=== PATIENT | male | born 1985 | race African-American/Black ===

== ENCOUNTER → 2020-03-22 10:19 | Outpatient (CLI) | payer BC, SELFPAY ==
[2017-02-15 02:12] VITALS: BMI 30.8
--- NOTE | 2020-03-22 10:26 | RAD_ITS ---
STUDY: X-RAY - ABDOMEN/PELVIS REASON FOR EXAM: Male, 35 years old. LOWER ABDOMINAL PAIN x2 WEEKS TECHNIQUE: AP supine and upright views of the abdomen and pelvis. COMPARISON: None. FINDINGS: Normal visualized lung bases. There is an unremarkable bowel gas pattern. There is no demonstrated free abdominal air. The visualized liver, spleen and kidneys are grossly normal in size and morphology. Normal soft tissue structures. Normal visualized osseous structures. RAD/Abd Inc Decub and/or Erect IMPRESSION: Normal x-ray examination of the abdomen and pelvis. Electronically Signed: Dionte Abraham MD at 9:14 EDT Tel , Service support ,
== END ==
PROVIDERS: PCP Family Medicine; Referring Provider Family Medicine; Visit Provider Family Medicine
DX: R10.9 Unspecified abdominal pain (principal)
CPT/HCPCS: 74019

== ENCOUNTER → 2020-03-26 12:44 | Outpatient (CLI) | payer BC, SELFPAY ==
--- NOTE | 2020-03-26 12:48 | CT_ITS ---
STUDY: CT ABDOMEN AND PELVIS WITH CONTRAST REASON FOR EXAM: Male, 35 years old. Abdomen pain, LLQ tenderness, Pain around umbilical region, Pain is intermittent, No prev surg RADIATION DOSAGE (If Supplied By Facility): CTDIvol = ( 13.95 ) mGy, DLP = ( 1067.88 ) mGycm TECHNIQUE: Transaxial images were obtained from the dome of the diaphragm to the symphysis pubis with oral contrast. Oral and amp; IV Readi-CAT and amp; 100mL Isovue-300 was administered. Sagittal and coronal images were reconstructed. Individualized dose optimization techniques were used for this CT. COMPARISON: None. FINDINGS: The visualized lung bases are unremarkable. The visualized portions of the heart are within normal limits. Normal liver. Normal gallbladder and extrahepatic biliary system. Normal spleen. Normal pancreas. Normal bilateral adrenal glands. There is a 2 cm x 2 some mucous cyst in the upper pole of the right kidney. Normal left kidney. Normal visualized stomach. Normal small intestine. There is thickening of the descending colon as well as the rectosigmoid colon and rectum with increased markings in the surrounding peritoneal fat. Colitis should be ruled out. The appendix is visualized and appears normal. Normal abdominal aorta. Normal inferior vena cava. There is borderline retroperitoneal lymphadenopathy with enlarged nodes no greater than 10mm in the short axis diameter. Mild degree of diffuse bladder wall thickening above the bladder is not completely distended. Small bilateral inguinal hernias containing fat more prominent on the right side. Normal osseous structures. CT/Abdomen/Pelvis WITH Contrast IMPRESSION: Findings in keeping with a colitis of the left; worse in the sigmoid and rectosigmoid junction. Electronically Signed: Bernard Bar, at 13:48 EST , Service support ,
== END ==
LOC: CT 12:45
PROVIDERS: PCP Family Medicine; Referring Provider Family Medicine; Visit Provider Family Medicine
DX: R10.9 Unspecified abdominal pain (principal)
CPT/HCPCS: 74177; Q9967

== ENCOUNTER → 2020-04-29 15:57 | Outpatient (CLI) | payer BC, SELFPAY ==
[2017-02-15 02:12] VITALS: BMI 30.8
[2020-04-29 17:53] LABS: Hematocrit 45.1 % (40-54); Hemoglobin 14.7 g/dL (13.0-16.5); Mean Corp Hgb Conc 32.6 g/dL (32-36); Mean Corpuscular Hgb 28.8 pg (27.0-32.0); Mean Corpuscular Volume 88.3 fL (80-94); Mean Platelet Vol. 13.1 fl (6.2-12.0); Platelet Count 200 K/mm3 (150-450); RBC Distribution Width CV 13.4 % (11.6-14.6); RBC Distribution Width SD 44.1 fl (35.1-43.9); Red Blood Count 5.11 M/mm3 (4.6-6.2); White Blood Count 8.6 K/mm3 (4.4-11.0)
[2020-04-29 18:44] LABS: Erythrocyte Sedimentation Rate 2 mm/hr (0-15)
[2020-04-29 19:01] LABS: ALB/GLOB Ratio 1.3 RATIO (0.9-2.4); AST(SGOT) 13 U/L (15-37); Alanine Aminotransfer ALT/SGPT 37 U/L (16-61); Albumin, Serum 4.3 g/dL (3.2-5.0); Alkaline Phosphatase 80 U/L (45-117); Anion Gap 3 (5-15); BUN 15 mg/dL (7-18); BUN/Creat Ratio 17.2 RATIO (10-20); CRP < 2.90 mg/L (0.0-3.0); Calcium,Total 9.1 mg/dL (8.5-10.1); Chloride 107 mmol/L (98-107); Creatinine, Serum 0.87 mg/dL (0.70-1.30); EST Glomerular Filtration Rate 107 mL/min (>60); Est Glom Filt Rate - Afr Amer 129 mL/min (>60); Globulin 3.4 g/dL (2.2-4.2); Glucose 77 mg/dL (74-106); Potassium 3.6 mmol/L (3.5-5.1); Protein, Total 7.7 g/dL (6.4-8.2); Sodium Level 139 mmol/L (136-145)
[2020-05-01 16:08] LABS: Endomysial Antibody IgA Negative (Negative)
[2020-05-01 21:05] LABS: Immunoglobulin A 193 mg/dL (90-386); t-Transglutaminase IgA <2 U/mL (0-3)
== END ==
PROVIDERS: PCP Family Medicine; Referring Provider Internal Medicine Gastroenterology; Visit Provider Internal Medicine Gastroenterology
DX: R19.7 Diarrhea, unspecified (principal); R63.4 Abnormal weight loss
CPT/HCPCS: 36415; 80053; 82784; 83516; 85027; 85652; 86140; 86255

== ENCOUNTER 2023-05-29 05:27 | Emergency (ER) | payer MEDICAID, SELFPAY ==
[2023-05-29 05:28] VITALS: BP 133/77; PULSE 91; RESP 15; TEMP 35.8; O2SAT 89; BMI 36.5
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
[2023-05-29 06:13] LABS: Absolute Lymphocyte Count 1.02 X10^3/uL (0.83-4.51); Absolute Neutrophil Count 7.1 X10^3/uL (2.0-7.7); Basophil# 0.07 X10^3/uL; Basophil% 0.8 % (0-1); Eosinophil# 0.02 X10^3/uL; Eosinophils% 0.2 % (0-5); Hematocrit 45.7 % (40-54); Hemoglobin 15.5 g/dL (13.0-16.5); Lymphocyte # 1.02 X10^3/ul (0.83-4.51); Lymphocyte % 11.5 % (19-41); Mean Corp Hgb Conc 33.9 g/dL (32-36); Mean Corpuscular Hgb 30.4 pg (27.0-32.0); Mean Corpuscular Volume 89.6 fL (80-94); Mean Platelet Vol. 12.2 fl (6.2-12.0); Monocyte# 0.54 X10^3/uL; Monocyte% 6.1 % (0-10); NRBC Flagged by Analyzer 0 % (0-5); Neutrophil # 7.12 X10^3/uL (2.7-7.7); Neutrophil % 80.3 % (47-70); Platelet Count 202 K/mm3 (150-450); RBC Distribution Width CV 13.1 % (11.6-14.6); White Blood Count 8.9 K/mm3 (4.4-11.0)
--- NOTE | 2023-05-29 06:21 | RAD_ITS ---
INDICATION: dyspnea EXAMINATION/TECHNIQUE: X-RAY - XR Chest 1 View COMPARISON: None. FINDINGS: LINES/DEVICES: None. LUNGS: No consolidation or evidence of an effusion. No evidence of edema or a pneumothorax. MEDIASTINUM AND CARDIOVASCULAR STRUCTURES: Cardiac silhouette is normal in size and contour. Mediastinum is unremarkable. BONES AND SOFT TISSUES: No acute abnormality. RAD/Chest 1 View (Portable) IMPRESSION: No evidence of cardiopulmonary disease. Electronically Signed: Lokesh Mcarthur DO at 7:04 EST ,
[2023-05-29 06:31] LABS: Anion Gap 6 (5-15); BUN 10 mg/dL (7-18); BUN/Creat Ratio 10.5 RATIO (10-20); Calcium,Total 8.4 mg/dL (8.5-10.1); Chloride 111 mmol/L (98-107); Creatinine, Serum 0.96 mg/dL (0.70-1.30); EST Glomerular Filtration Rate 95 mL/min (>60); Est Glom Filt Rate - Afr Amer 115 mL/min (>60); Estimated Creatinine Clearance 106.38 ml/min; Glucose 130 mg/dL (74-106); Sodium Level 141 mmol/L (136-145)
[2023-05-29 06:43] LABS: Amphetamine Urine VISTA NEGATIVE (<1000 ng/mL); Barbiturate Urine VISTA NEGATIVE (< 200 ng/mL); Benzodiazepine Urine VISTA NEGATIVE (< 200 ng/mL); Cocaine Urine VISTA POSITIVE (< 300 ng/mL); Ecstacy Urine VISTA NEGATIVE (< 500 ng/mL); Methadone Urine VISTA NEGATIVE (< 300 ng/mL); PCP Urine VISTA NEGATIVE (< 25 ng/mL); THC Urine VISTA POSITIVE (< 50 ng/mL); Vista UDS pH Range 5
--- NOTE | 2023-05-29 07:14 | EX.ED.DYSGE1 ---
HPI History of Present Illness Chief Complaint: Overdose Informant: patient and EMS Narrative Narrative: Patient is a 38-year-old male with no reported significant past medical history. He reports he was at a democr[employer] drinking this evening when the next he knows he is waking up by EMS. EMS states that they were called secondary to multiple overdoses and when they arrived the patient was unresponsive but breathing. EMS states they gave the patient approximately 3 Narcan's and he awoke. The patient states he did not deliberately take any type of opioid and reports he has no complaints at this time PFSH PFS Medical History no medical history Home Medications tramadol 50 mg tablet 50 mg PO Q4H PRN PRN Pain #20 tabs 03/18/15 [Rx Last Taken Unknown] ibuprofen 600 mg tablet 600 mg PO 4X/DAY #20 tabs 02/15/17 [Rx Last Taken Unknown] penicillin V potassium 500 mg tablet 500 mg PO 4X/DAY #40 tabs 02/15/17 [Rx Last Taken Unknown] Allergy/AdvReac Type Severity Reaction Status Date / Time cefaclor [From [facility]] Allergy Hives Verified 05/29/23 05:36 Surgical History no surgical history Social History Smoking Status: Current every day smoker tobacco type: cigarettes ROS ROS ED Constitutional Constitutional ED: Denies chills or fever(s) Eyes Eyes: Denies change in vision ENT ENT ED: Denies sore throat Cardiovascular Cardiovascular: Denies chest pain Respiratory/Chest Respiratory/Chest: Denies cough or dyspnea Gastrointestinal Gastrointestinal: Denies abdominal pain, diarrhea, nausea or vomiting Genitourinary Genitourinary ED: Denies dysuria Musculoskeletal Musculoskeletal: Denies myalgias Integumentary Denies rash Neurologic Neurologic: Denies headache(s) Psychiatric Psychiatric: Denies suicidal ideation or suicidal thoughts Hematologic/Lymphatic Hematologic/Lymphatic: Denies easy bleeding or easy bruising EXAM Physical Exam Const Vital Signs: 05/29/23 05:28 Temperature 96.4 F L Temperature Source Temporal Pulse Rate 91 Respiratory Rate 15 Blood Pressure 133/77 H Blood Pressure Mean 95 Pulse Ox 89 Oxygen Delivery Method Room Air Positive well nourished and well developed General Appearance ED: well developed HEENT HEENT Narrative: Normocephalic atraumatic No tongue or lip swelling; no oral lesions no airway edema or compromise No signs of infection in the posterior pharynx Eyes PERRL and EOMs intact bilaterally Neck supple Neck Narrative: No nuchal rigidity or meningeal signs noted Resp normal respiratory effort Resp Narrative: Breath sounds are diminished throughout with faint rhonchi in the bilateral lower lobes Cardio regular rate and regular rhythm GI non-tender, non-distended and no masses Auscultation: hypoactive bowel sounds Palpation: soft Extremity normal to inspection Neuro oriented x3, CN's II-XII intact bilaterally and no sensory deficits noted Sensorium / Orientation: alert Motor Exam: strength 5/5 throughout Psych mental status grossly normal Skin no rashes or lesions noted MDM MDM MDM Narrative Medical decision making narrative: Patient presented to the ER with a pulse ox in the mid 80s but otherwise was awake and alert with stable vitals. As he was showing signs of hypoxia I did elect to check basic laboratory studies and a chest x-ray while he was placed on 2 L nasal cannula oxygen. Patient was awake and alert however and therefore there is no need for emergent airway stabilization or intubation. Blood work revealed no clinically significant findings and his toxin was positive for cocaine and marijuana as well as alcohol. The patient does admit to doing these things but denies any type of opioid ingestion indicating he most likely had fentanyl laced cocaine. The patient was watched in the ER for over 1 hour which is well beyond the 30-minute half-life of Narcan. He remained awake and alert and therefore there is low concern for progression to respiratory distress or mental status depression. As time went by and the medication metabolized out of his system he was breathing better and had improvement in his pulse ox. On room air he is now 90 to 94%. Does not have tachypnea or retractions accessory muscle use or depressed mental status. X-ray does not reveal any type of aspiration or pulmonary edema. Therefore do not feel there is need for admission to the hospital and he is otherwise safe for discharge Lab Data Labs: Laboratory Results - last 24 hr 05/29/23 06:00 WBC 8.9 RBC 5.10 Hgb 15.5 Hct 45.7 MCV 89.6 MCH 30.4 MCHC 33.9 RDW Std Deviation 43.0 RDW Coeff of Mio 13.1 Plt Count 202 MPV 12.2 H Immature Gran % (Auto) 1.100 H Neut % (Auto) 80.3 H Lymph % (Auto) 11.5 L [place] % (Auto) 6.1 Eos % (Auto) 0.2 Baso % (Auto) 0.8 Absolute Neuts (auto) 7.1 Absolute Lymphs (auto) 1.02 Nucleated RBC % 0 Sodium 141 Potassium 4.0 Chloride 111 H Carbon Dioxide 24.0 Anion Gap 6 BUN 10 Creatinine 0.96 Estim Creat Clear Calc 106.38 Est GFR (MDRD) Af Amer 115 Est GFR (MDRD) Non-Af 95 BUN/Creatinine Ratio 10.5 Glucose 130 H Calcium 8.4 L Urine Opiates Screen NEGATIVE Urine Methadone Screen NEGATIVE Ur Barbiturates Screen NEGATIVE Ur Phencyclidine Scrn NEGATIVE Ur Amphetamines Screen NEGATIVE MDMA (Ecstasy) Screen NEGATIVE U Benzodiazepines Scrn NEGATIVE Urine Cocaine Screen POSITIVE H U Cannabinoids Screen POSITIVE H Ur Drug Screen Comment Ethyl Alcohol 137.0 Radiography Diagnostic Testing: Clinical Impression(s) from Imaging Studies Chest X-Ray 05/29/23 06:21 IMPRESSION: No evidence of cardiopulmonary disease. Electronically Signed: Lokesh Mcarthur DO at 7:04 EST Reading Location ID and State: [facility] / [place] Tel , Service support , Chest x-ray as interpreted by the emergency medicine physician reveals no acute infiltrate pneumothorax or pleural effusion Discharge Plan Triage Chief Complaint: Overdose ED Provider: Luis E Sharma Dx/Rx/DC Orders Clinical Impression: Opioid overdose Instructions: Naloxone Nasal for Overdose Steps, ED Overdose, Opiate Prescriptions: No Action tramadol 50 MG tablet 50 mg PO Q4H PRN PRN (Reason: Pain) Qty: 20 0RF penicillin V potassium 500 MG tablet 500 mg PO 4X/DAY Qty: 40 0RF ibuprofen 600 MG tablet 600 mg PO 4X/DAY Qty: 20 0RF Primary Care Provider: Chika Kenney Referrals: Chika Kenney MD [Primary Care Provider] - Disposition Disposition: Home, Self Care Discharge Date/Time: 05/29/23 07:20
== END 2023-05-29 07:20 | disposition home or self-care (01) ==
PROVIDERS: Emergency Provider Emergency Medicine; PCP Family Medicine; Visit Provider Emergency Medicine
DX: T40.2X1A Poisoning by other opioids, accidental (unintentional), initial encounter (principal); F17.210 Nicotine dependence, cigarettes, uncomplicated; R09.02 Hypoxemia
CPT/HCPCS: 71045; 80048; 80307; 80320; 85025; 99283; A4216; G0480

== ENCOUNTER 2024-10-31 12:23 | Inpatient (IN) | payer SELFPAY ==
[2024-10-31] VITALS (14 sets, daily range): BP systolic 124–178; BP diastolic 73–107; PULSE 40–60; RESP 10–17; TEMP 36.1–36.4; O2SAT 94–100; BMI 35.9; BMI 36.1
--- NOTE | 2024-10-31 12:31 | EKG12_ITS ---
Test Reason : Blood Pressure : */* mmHG Vent. Rate : 45 BPM Atrial Rate : 45 BPM P-R Int : 220 ms QRS Dur : 92 ms QT Int : 434 ms P-R-T Axes : 48 55 26 degrees QTcB Int : 375 ms Sinus bradycardia with sinus arrhythmia with 1st degree A-V block Otherwise normal ECG Confirmed by Eliot Montoya ([id number]), newspaper copy editor VANCE MADRIGAL ([id number]) on 11/02/2024 6:14:02 AM Referred By: Confirmed By: Eliot Montoya
--- NOTE | 2024-10-31 12:43 | EX.ED.VIS.PS ---
HPI HPI - Psych History of Present Illness Chief Complaint: Overdose Informant: patient and EMS Narrative Narrative: Brought in by EMS for intentional overdose ingestion 10:30 AM 2 hours ago. Patient states stress from his ex-spouse and ex significant other. He has prescription for clonidine 0.1 mg which he takes every morning before work for anxiety and depression. He states due to stress he just wanted to sleep and have taken at least 60 tabs of his 0.1 mg pills. He took it into large swallows per patient. Denies any other ingestions. He follows psychiatry. He states never been hospitalized for psychiatric issues in the past. Denies any overdose in the past. Denies any current symptoms of nausea or vomiting or drowsiness. Picture from police deputy 0.1 mg confirm filled on 80 tabs however picture did not show the date filled. Prior similar symptoms: No PFSH PFSH Medical History no medical history Home Medications ?Medication ?Instructions ?Recorded ?Last Taken ?Type clonidine HCl 0.1 mg tablet 0.05 - 0.1 mg PO BID PRN PRN 10/31/24 10/31/24 History anxiety fluoxetine 20 mg capsule 20 mg PO DAILY 10/31/24 10/31/24 History Allergy/AdvReac Type Severity Reaction Status Date / Time cefaclor (From [facility]) Allergy Hives Verified 10/31/24 12:24 Family History no significant family his Surgical History no surgical history Social History Smoking Status: Current every day smoker tobacco type: cigarettes ROS ROS ED Constitutional Constitutional ED: Denies fever(s) Cardiovascular Cardiovascular: Denies chest pain Respiratory/Chest Respiratory/Chest: Denies cough Gastrointestinal Gastrointestinal: Denies diarrhea or vomiting Musculoskeletal Musculoskeletal: Denies none Integumentary Denies rash or wounds Neurologic Neurologic: Denies weakness Psychiatric Psychiatric: Reports anxiety, depression and other Details: Stressed EXAM Physical Exam Const Vital Signs: 10/31/24 12:24 10/31/24 12:24 10/31/24 13:24 Temperature 96.9 F L Temperature Source Oral Pulse Rate 43 L 45 L Respiratory Rate 14 17 Blood Pressure 152/104 H 168/97 H Blood Pressure Mean 120 120 Pulse Ox 99 98 Oxygen Delivery Method Room Air Room Air Room Air 10/31/24 14:00 10/31/24 14:28 Temperature 96.9 F L Temperature Source Pulse Rate 43 L 44 L Respiratory Rate 10 L 11 L Blood Pressure 158/78 H 158/78 H Blood Pressure Mean 104 104 Pulse Ox 100 100 Oxygen Delivery Method Room Air Positive well nourished and well developed General Appearance ED: well developed and NAD HEENT Reports moist mucous membranes normocephalic and atraumatic Eyes General Eye ED: Yes normal appearance of both eyes Neck full ROM Chest Wall Chest: Negative for tenderness Resp normal respiratory effort and normal air movement Effort and Inspection: symmetric chest movement; Negative for respiratory distress Cardio no murmurs Rate: bradycardia Peripheral Pulses: pulses 2+ throughout GI normal to inspection, nondistended, normoactive bowel sounds and non-tender Palpation: Negative for guarding or rebound tenderness present Extremity normal to inspection General Extremety ED: Negative for edema or tenderness General Extremity: Negative for edema Neuro oriented x3 and no sensory deficits noted Sensorium / Orientation: awake and alert Psych Psych Narrative: Cooperative, nontoxic. Skin no rashes or lesions noted and no wounds MDM MDM MDM Narrative Medical decision making narrative: Interventions / MDM: Differential diagnosis: Intentional overdose, history of anxiety and depression, bradycardia Diagnosis considered but do not suspect: N/A My EKG interpretation: Sinus rate of 45, no ST changes. QTc 375. Imaging independently reviewed and interpreted by myself: N/A External documents reviewed: N/A Test considered but not ordered:N/A ED course: Intentional overdose 2 hours prior to arrival current vitals pulse of 43 blood pressure 152/104. Psychiatric labs ordered including aspirin and Tylenol levels. 1240: I spoke with poison control, discussed his ingestion 2 hours ago. They report monitoring for his vitals if he clinically does not develop drowsiness or symptoms can clear after 6 hours however if he does start having clinical symptoms he would need 24 hours of monitoring. 1300: Patient is reporting some fatigue. Stating if he lays down it fall asleep in 20 minutes. Hemoglobin 14.8 white count 13.2. 1340: after reevaluate the patient, he is now stating he was not drowsy, sitting on the room states only for last 10 seconds. I discussed with him he likely hospitalization as somnolence is part of side effects even though he did not sleep last night. Discussed he will be on a psychiatric hold for intentional ingestion. Shortly after he tried to walk out of the department. Security and PD contacted. Will order for Haldol Ativan and Benadryl for chemical sedation. [place] slip has been filled out. 1359: [place] police was in the department. Medications not been given. Took 4 officers to get him back to the room. He was tearful being apologetic stating he will cooperate. He states first time he is being pink slipped. Discussed with him medically he needs to make sure he is safe with his vitals and his ingestion. Discussed he will need psychiatric evaluation and clearance prior to going home to his family and children. He understands this. He states he is willing to cooperate therefore medications will be held at this time. Toxicology THC opiates, alcohol negative. Aspirin and Tylenol negative. Will discuss with hospitalist service for admission. I discussed with Dr. Calderon for admission to ICU. Re-evaluation: stable Disposition discussed with patient/family/significant other: Patient and significant other Case discussed with consulting clinician: Hospitalist This note was generated with [employer] dictation software. It may contain incorrect words, spelling, and punctuation that were not noted in checking the note before signing. Lab Data Attestation: I reviewed the patient's lab results. Labs: Laboratory Results - last 24 hr 10/31/24 10/31/24 12:50 13:20 WBC 13.2 H RBC 4.63 Hgb 14.8 Hct 41.0 MCV 88.6 MCH 32.0 MCHC 36.1 H RDW Std Deviation 42.3 RDW Coeff of Mio 13.1 Plt Count 212 MPV 12.2 H Immature Gran % (Auto) 1.400 H Neut % (Auto) 71.5 H Lymph % (Auto) 17.3 L [place] % (Auto) 6.7 Eos % (Auto) 2.3 Baso % (Auto) 0.8 Absolute Neuts (auto) 9.5 H Absolute Lymphs (auto) 2.29 Nucleated RBC % 0 Sodium 136 Potassium 4.3 Chloride 104 Carbon Dioxide 22.8 Anion Gap 10 BUN 14 Creatinine 0.78 Estim Creat Clear Calc 158.87 Est GFR (MDRD) Non-Af 118 BUN/Creatinine Ratio 17.5 Glucose 206 H Calcium 9.1 Total Bilirubin 0.37 AST 21 ALT 33 Alkaline Phosphatase 101 Total Protein 6.8 Albumin 4.2 Globulin 2.6 Albumin/Globulin Ratio 1.6 Salicylates < 0.5 L Urine Opiates Screen PRESUMPTIVE POSITIVE U Buprenorphine Qual NEGATIVE Ur Oxycodone Screen NEGATIVE Urine Methadone Screen NEGATIVE Urine Fentanyl Screen NEGATIVE Acetaminophen < 5.0 L Ur Barbiturates Screen NEGATIVE Ur Phencyclidine Scrn NEGATIVE Ur Amphetamines Screen NEGATIVE U Benzodiazepines Scrn NEGATIVE Urine Cocaine Screen NEGATIVE U Cannabinoids Screen PRESUMPTIVE POSITIVE Ethyl Alcohol < 10.1 Critical Care Time Critical Care Time: Yes Critical care time (excluding procedures): 30-74 minutes, Discussing w/Patient &/or Family/Accordion Maker, Discussing w/Consultants, Arranging Admission or Transfer, Performing Direct Patient Care at Bedside and - (35 minutes) Discharge Plan Triage Chief Complaint: Overdose ED Provider: Ezequiel Feliciano Dx/Rx/DC Orders Primary Care Provider: Care Physician,No Primary
[2024-10-31 13:04] LABS: Absolute Lymphocyte Count 2.29 X10^3/uL (0.83-4.51); Absolute Neutrophil Count 9.5 X10^3/uL (2.0-7.7); Basophil# 0.11 X10^3/uL; Basophil% 0.8 % (0-1); Eosinophils% 2.3 % (0-5); Hemoglobin 14.8 g/dL (13.0-16.5); Lymphocyte # 2.29 X10^3/ul (0.83-4.51); Lymphocyte % 17.3 % (19-41); Mean Corp Hgb Conc 36.1 g/dL (32-36); Mean Corpuscular Volume 88.6 fL (80-94); Mean Platelet Vol. 12.2 fl (6.2-12.0); Monocyte# 0.88 X10^3/uL; Monocyte% 6.7 % (0-10); NRBC Flagged by Analyzer 0 % (0-5); Neutrophil # 9.46 X10^3/uL (2.7-7.7); Neutrophil % 71.5 % (47-70); Platelet Count 212 K/mm3 (150-450); RBC Distribution Width CV 13.1 % (11.6-14.6); RBC Distribution Width SD 42.3 fl (35.1-43.9); Red Blood Count 4.63 M/mm3 (4.6-6.2); White Blood Count 13.2 K/mm3 (4.4-11.0)
[2024-10-31 13:37] LABS: ALB/GLOB Ratio 1.6 RATIO (0.9-2.4); AST(SGOT) 21 U/L (<=37); Acetaminophen (Tylenol) Level < 5.0 ug/mL (8.0-19.0); Alanine Aminotransfer ALT/SGPT 33 U/L (<=46); Albumin, Serum 4.2 g/dL (3.5-5.0); Alcohol, Blood (Medical)-Serum < 10.1 mg/dL (<=10.0); Alkaline Phosphatase 101 U/L (40-129); Anion Gap 10 (5-15); BUN 14 mg/dL (4-19); BUN/Creat Ratio 17.5 RATIO (10-20); Calcium,Total 9.1 mg/dL (7.6-11.0); Carbon Dioxide 22.8 mmol/L (21.0-32.0); Chloride 104 mmol/L (98-108); Creatinine, Serum 0.78 mg/dL (0.70-1.20); EST Glomerular Filtration Rate 118 (>60); Estimated Creatinine Clearance 158.87 ml/min (50-250); Globulin 2.6 g/dL (2.2-4.2); Glucose 206 mg/dL (70-99); Potassium 4.3 mmol/L (3.3-5.1); Protein, Total 6.8 g/dL (5.9-8.4); Salicylate < 0.5 mg/dL (2.8-20.0); Sodium Level 136 mmol/L (133-145); Total Bilirubin 0.37 mg/dL (0.00-1.30)
[2024-10-31 13:47] LABS: Amphetamine Urine NEGATIVE (<1000 ng/mL); Barbiturate Urine NEGATIVE (< 200 ng/mL); Benzodiazepine Urine NEGATIVE (< 200 ng/mL); Buprenorphine Urine NEGATIVE (< 200 ng/mL); Cocaine Urine NEGATIVE (< 300 ng/mL); Fentanyl, Urine NEGATIVE; Methadone Urine NEGATIVE (< 300 ng/mL); Opiates Urine PRESUMPTIVE POSITIVE (< 300 ng/mL); Oxycodone, Urine NEGATIVE (< 100 ng/mL); PCP Urine NEGATIVE (< 25 ng/mL); THC Urine PRESUMPTIVE POSITIVE (< 50 ng/mL)
--- NOTE | 2024-10-31 14:06 | ED.RN ---
This RN was called to the bedside by sitter. Pt leaving room, ripping off monitors and tearing out IV. Security and PD notified immediately. PD Jose at entrance when Pt tried to leave. PD tried to talk to Pt but Pt started pushing past. Pt refused to listen. Pt put in bed and safely returned to room. Sitter and security at bedside.
--- NOTE | 2024-10-31 14:33 | PCM.HP.STD ---
HPI - General General Date of Admission: 10/31/24 Date of Service: 10/31/24 Chief Complaint: Intentional clonidine overdose HPI Narrative TORREY CRAIG, is a 39 M who presented to [facility] ED on 10/31/24 after an intentional clonidine overdose. Patient takes clonidine 0.1 mg before work morning for anxiety and depression. Noted that he had been under significant stress recently from his ex significant other. Because of the stress he reported wanting to sleep and took at least 60 tabs of his 0.1 mg clonidine pills. No prior history of intentional overdose. Denies any other ingestions. He does follow with psychiatry in the outpatient setting but has never been hospitalized for psychiatric issues. Per ED physician, there was a picture from the police that confirmed a fill of 0.1 mg of clonidine for 80 tabs, though the fill date was not shown. On arrival to the ED he was mildly somnolent but protecting his airway without issue. Heart rate was in the low 40s and EKG showed sinus bradycardia with first-degree AV block. However he was hypertensive to the 150s and 160s systolic. ED physician discussed with poison control who recommended only monitoring at this point. Patient was calm until he was told he would be pink slipped for psychiatric hold; at that time he tried to walk out of the ED and took 4 officers to get back into his room. Haldol, Ativan and Benadryl were ordered but did not need to be given as patient was able to be redirected back into bed and agreed to stay without issue. Given his ongoing bradycardia and need for 24 hours of monitoring, hospitalist was contacted for admission. I saw the patient at bedside in the ED. Patient was sleeping when I arrived to the room. Upon awakening, he was somewhat somnolent but was answering questions appropriately for me. He denied any acute pain or discomfort. No other acute concerns at this time. [facility] Medical History no medical history Home Medications ?Medication ?Instructions ?Recorded ?Last Taken ?Type clonidine HCl 0.1 mg tablet 0.05 - 0.1 mg PO BID PRN PRN 10/31/24 10/31/24 History anxiety fluoxetine 20 mg capsule 20 mg PO DAILY 10/31/24 10/31/24 History Allergy/AdvReac Type Severity Reaction Status Date / Time cefaclor (From [facility]) Allergy Hives Verified 10/31/24 12:24 Family History no significant family his Surgical History no surgical history Social History Smoking Status: Current every day smoker tobacco type: cigarettes ROS Constitutional Constitutional: Reports fatigue; Denies chills, fever(s) or weakness Eyes Eyes: Denies change in vision Cardiovascular Cardiovascular: Denies chest pain Respiratory/Chest Respiratory/Chest: Denies shortness of breath at rest Gastrointestinal Gastrointestinal: Denies abdominal pain Neurologic Neurologic: Denies dizziness, focal weakness or headache(s) Psychiatric Psychiatric: Reports anxiety and depression; Denies homicidal ideation or suicidal ideation Vital Signs Vital Signs Vital Signs: 10/31/24 12:24 10/31/24 12:24 10/31/24 13:24 Temperature 96.9 F L Temperature Source Oral Pulse Rate 43 L 45 L Respiratory Rate 14 17 Blood Pressure 152/104 H 168/97 H Blood Pressure Mean 120 120 Pulse Ox 99 98 Oxygen Delivery Method Room Air Room Air Room Air 10/31/24 14:00 10/31/24 14:28 Temperature 96.9 F L Temperature Source Pulse Rate 43 L 44 L Respiratory Rate 10 L 11 L Blood Pressure 158/78 H 158/78 H Blood Pressure Mean 104 104 Pulse Ox 100 100 Oxygen Delivery Method Room Air Weight Weight: 110.5 kg Body Mass Index (BMI) 35.9 Physical Exam Const alert, oriented x3 and no apparent distress Constitutional Narrative: Younger male, class II obesity, mildly somnolent appearing, otherwise laying back comfortably in bed, conversing normally, in no acute distress. General Appearance: cooperative and comfortable HEENT normocephalic, head/scalp atraumatic, hearing grossly normal bilaterally, nasal mucous membranes and turbinates normal and moist oral mucous membranes Eyes PERRL, EOMs intact bilaterally and conjunctivae normal Neck full ROM Chest inspection of chest normal Resp normal respiratory effort, normal air movement, no use of accessory muscles and clear to auscultation bilaterally Cardio no murmurs and peripheral pulses 2+ throughout Cardio Narrative: Bradycardic, regular rhythm. GI normal to inspection, nondistended, normoactive bowel sounds, soft to palpation, non-tender and non-distended Back/Spine normal ROM Extremity normal to inspection, full ROM and no pedal edema Skin no rashes or lesions noted Psych Psych Narrative: Mildly somnolent with flat affect. Mood & Affect: depressed Results Lab / Micro Data 10/31/24 12:50 10/31/24 12:50 Labs: Laboratory Results - last 24 hr 10/31/24 12:50: WBC 13.2 H, RBC 4.63, Hgb 14.8, Hct 41.0, MCV 88.6, MCH 32.0, MCHC 36.1 H, RDW Std Deviation 42.3, RDW Coeff of Mio 13.1, Plt Count 212, MPV 12.2 H, Immature Gran % (Auto) 1.400 H, Neut % (Auto) 71.5 H, Lymph % (Auto) 17.3 L, [place] % (Auto) 6.7, Eos % (Auto) 2.3, Baso % (Auto) 0.8, Absolute Neuts (auto) 9.5 H, Absolute Lymphs (auto) 2.29, Nucleated RBC % 0, Sodium 136, Potassium 4.3, Chloride 104, Carbon Dioxide 22.8, Anion Gap 10, BUN 14, Creatinine 0.78, Estim Creat Clear Calc 158.87, Est GFR (MDRD) Non-Af 118, BUN/Creatinine Ratio 17.5, Glucose 206 H, Calcium 9.1, Total Bilirubin 0.37, AST 21, ALT 33, Alkaline Phosphatase 101, Total Protein 6.8, Albumin 4.2, Globulin 2.6, Albumin/Globulin Ratio 1.6, Salicylates < 0.5 L, Acetaminophen < 5.0 L, Ethyl Alcohol < 10.1 10/31/24 13:20: Urine Opiates Screen PRESUMPTIVE POSITIVE, U Buprenorphine Qual NEGATIVE, Ur Oxycodone Screen NEGATIVE, Urine Methadone Screen NEGATIVE, Urine Fentanyl Screen NEGATIVE, Ur Barbiturates Screen NEGATIVE, Ur Phencyclidine Scrn NEGATIVE, Ur Amphetamines Screen NEGATIVE, U Benzodiazepines Scrn NEGATIVE, Urine Cocaine Screen NEGATIVE, U Cannabinoids Screen PRESUMPTIVE POSITIVE Assessment & Plan Assessment/Plan (1) Intentional overdose of clonidine: PLAN: Plan Patient is a 39-year-old male who presented to [facility] ED on 10/31/24 for intentional clonidine overdose. 1. Intentional clonidine overdose ? Admit under inpatient status to ICU. Reportedly took about 60 tablets of clonidine 0.1 mg. Typically takes clonidine 0.1 mg every morning for anxiety/depression. He denied suicidal ideation; rather stated he took this because he has been under a lot of stress and wanted to sleep. Bradycardic in the ED with rate in the 40s, with EKG showing sinus bradycardia with first-degree AV block. BP normal. Mild somnolence but no concern for airway issues. Monitor closely overnight. [place] slip in place and patient will require inpatient psychiatric hospitalization once medically cleared. 2. Elevated BP ? Hypertensive to the 150s to 160s systolic in the ED. No reported history of hypertension. Suspect this could be some degree of rebound hypertension in setting of clonidine overdose. Will order IV hydralazine as needed for SBP greater than 170. 3. Anxiety/depression ? Psychiatric hold in place as noted above. Continue home fluoxetine. Holding clonidine. 4. Class II obesity ? BMI 36 on admit. Complicates hospital course, care and prognosis. DVT prophylaxis: Lovenox CODE STATUS: Full code, unverified Expected disposition: Inpatient psych, TBD Total clinical time spent by myself addressing the patient's medical issues, reviewing all the data, and collaborating with patient's care team: 55 minutes. Charges/Coding Visit Charges Inpatient E&M: 96831 Init Hosp L2
--- NOTE | 2024-10-31 16:48 | CM.ED ---
Social Work SW met with patient and patients to notify patient of what to expect over the next day or days. SW explained that patient was brought to ED on a pink slip and that once he was medically cleared he would be assessed to determine if further mental health treatment was needed. Patient stated that he had taken that many pills on accident and that he was not trying to kill himself. SW told patient that he would be able to speak with whatever mental health professional was completing his assessment. Patient wanted to know how long he would be at the hospital, SW explained that a pink slip was valid for 3 days but it was uncertain how long process would take as it was uncertain when he would be medically cleared. Patient and patients had no questions during conversation. Clau Araujo, MEDICAL BILLING ASSISTANT, COMMERCIAL LOAN ADMINISTRATOR
--- NOTE | 2024-10-31 17:51 | ED.RN ---
Report called to ICU
--- OUTSIDE RECORDS SUMMARY | 2024-10-31 23:55 | XMS RPT_ITS | CCD ---
Author Organization [facility] Care Team Providers Care [facility] Dentist Name Role Phone Unavailable Primary Care Provider UnavailLuis E Ramos Attending Unavailable Chika Kenney Primary Care Unavailable Dr. Ezequiel Feliciano DO Emergency Provider [phone] Care Physician, No Primary Primary Care Provider Unavailable Dr. Lane Calderon DO Attending Provider Dr. Lane Calderon DO Admit Provider Allergies Allergy Classification Reported Allergen(s) Allergy Type Date of Onset Reaction(s) Facility (5 sources) Cefaclor; Translations: [CEFACLOR] Drug Allergy 07-29-2006 [facility] (1 source) Cefaclor Drug Allergy 05-29-2023 [facility] Repository Medications Current Medications Medication Drug Class(es) Dates Sig (Normalized) Sig (Original) amoxicillin 875 mg / clavulanate 125 mg oral tablet (1 source) Penicillin-class Antibacterial Start: 05-27-2022 End: 06-01-2022 take 1 tablet by mouth twice daily amoxicillin-clavul anic acid (AUGMENTIN) 875-125 mg per tablet Take 1 tablet by mouth twice daily for 5 days. 10 tablet 0 05/27/2022 06/01/2022 Active Comment on above: Take 1 tablet by janice twice daily for 5 days. ciprofloxacin 3 mg/ml ophthalmic solution (1 source) Quinolone Antimicrobial Start: 05-27-2022 End: 06-03-2022 take 1-2 drop(s) into the eye(s) every two hours, then take 1-2 drop(s) into the eye(s) every four hours ciprofloxacin HCl (CILOXAN) 0.3 % ophthalmic solution Use 1-2 drops inside left lower eyelid(s) every 2 hours while awake for 2 days, then 1-2 drops every 4 hours for next 5 days. 10 mL 0 05/27/2022 06/03/2022 Active Comment on above: Use 1-2 drops inside left lower eyelid(s) every 2 hours while awake for 2 days, then 1-2 drops every 4 hours for next 5 days. cloNIDine hydrochloride 0.1 mg oral tablet (1 source) Central alpha-2 Adrenergic Agonist Start: 10-31-2024 take 0.05-0.1 mg by mouth twice daily as needed for anxiety Clonidine Hcl 0.1 mg tablet Active 0.05 - 0.1 mg PO TWICE DAILY NEEDED as needed for anxiety October 31, 2024 12:00am erythromycin 0.005 mg/mg ophthalmic ointment (1 source) Macrolide, Macrolide Antimicrobial Start: 06-12-2022 End: 06-19-2022 erythromycin (ROMYCIN) 5 mg/gram (0.5 %) ophthalmic ointment Indications: Hordeolum internum right upper eyelid Use 1 application in the right eye every 6 hours for 7 days. 3.5 g 0 06/12/2022 06/19/2022 Active Comment on above: Use 1 application in the right eye every 6 hours for 7 days. FLUoxetine 20 mg oral capsule (3 sources) Serotonin Reuptake Inhibitor Start: 10-31-2024 take 1 capsule by mouth once daily Fluoxetine 20 mg capsule Active 20 mg PO DAILY October 31, 2024 12:00am Start: 03-26-2022 take 1 capsule by mo [facility] once daily FLUoxetine (PROZAC) 20 mg capsule Take 20 mg by mouth once daily. 0 03/26/2022 Active Comment on above: Take 20 mg by mouth once daily. Completed/Discontinued Medications Medication Drug Class(es) Dates Sig (Normalized) Sig (Original) ibuprofen 600 mg oral tablet (2 sources) Nonsteroidal Anti-inflammatory Drug Start: 02-15-2017 End: 10-31-2024 take 1 tablet by mouth four times daily Ibuprofen 600 MG tablet Discontinued 600 mg PO 4 TIMES DAILY February 15, 2017 12:00am October 31, 2024 12:43pm penicillin v potassium 500 mg oral tablet (2 sources) Start: 02-15-2017 End: 10-31-2024 take 1 tablet by mouth four times daily Penicillin V Potassium 500 MG tablet Discontinued 500 mg PO 4 TIMES DAILY February 15, 2017 12:00am October 31, 2024 12:43pm traMADol hydrochloride 50 mg oral tablet (2 sources) Opioid Agonist Start: 03-18-2015 End: 10-31-2024 take 1 tablet by mouth every four hours as needed for pain Tramadol 50 MG tablet Discontinued 50 mg PO EVERY 4 HOURS NEEDED as needed for Pain March 18, 2015 12:00am October 31, 2024 12:43pm Problems Problem Classification Problem Date Documented Date Episodic/Chronic Disorders of teeth and jaw (3 sources) Toothache; Translations: [Other specified disorders of teeth and supporting structures] Episodic Headache; including migraine (2 sources) Headache; Translations: [Headache] 02-16-2017 Episodic Inflammation; infection of eye (except that caused by tuberculosis or sexually transmitteddisease) (2 sources) Conjunctivitis of left eye; Translations: [Unspecified conjunctivitis] Episodic Poisoning by other medications and drugs (3 sources) Poisoning by other opioids, accidental (unintentional), initial encounter; Translations: [Opioid overdose] Onset: 07-13-2023 05-29-2023 Episodic Suicide and intentional self-inflicted injury (2 sources) Intentional clonidine overdose; Translations: [Poisoning by other antihypertensive drugs, intentional self-harm, initial encounter] 10-31-2024 Episodic Results Test Name Value Interpretation Reference Range Facility Absolute lymphocyte countOrd ered By: Ezequiel Feliciano on 10-31-2024 Lymphocytes Auto (Unsp spec) [#/Vol] 2.29 10*3/uL 0.83-4.51 [facility] Absolute neutrophil countOrd ered By: Ezequiel Feliciano on 10-31-2024 Neutrophils (Bld) [#/Vol] 9.5 10*3/uL High 2.0-7.7 [facility] Amphetamine detection with 1 000 ng/mL as cutoffOrdered By: Ezequiel Feliciano on 10-31-2024 Amphetamines Screen method >1000 ng/mL Ql (U) Negative < 200 ng/mL [facility] Anion gap in Serum or Plasma Ordered By: Ezequiel Feliciano on 10-31-2024 Anion gap [Moles/Vol] 10 mmol/L 5-15 [facility] Automated lymphocyte count a s percentage of total leukocytesOrdered By: Ezequiel Feliciano on 10-31-2024 Lymphocytes/100 WBC Auto (Unsp spec) 17.3 % Low 19-41 [facility] BUN/creatinine ratioOrdered By: Ezequiel Feliciano on 10-31-2024 Urea nitrogen/Creatinine [Mass ratio] 17.5 mg/mg 10-20 [facility] Basophil percentageOrdered B y: Ezequiel Feliciano on 10-31-2024 Basophils/100 WBC (Bld) 0.8 % 0-1 [facility] Bilirubin, totalOrdered By: Ezequiel Feliciano on 10-31-2024 Bilirubin [Mass/Vol] 0.37 mg/dL 0.00-1.30 [facility] Carbon dioxide, total [Moles /volume] in Central venous bloodOrdered By: Ezequiel Feliciano on 10-31-2024 CO2 [Moles/Vol] 22.8 mmol/L 21.0-32.0 [facility] Chloride assayOrdered By: Ravinder Feliciano on 10-31-2024 Chloride [Moles/Vol] 104 mmol/L 98-108 [facility] Eosinophil percentageOrdered By: Ezequiel Feliciano on 10-31-2024 Eosinophils/100 WBC (Bld) 2.3 % 0-5 [facility] Erythrocyte distribution wid th ratioOrdered By: Ezequiel Feliciano on 10-31-2024 Erythrocyte distribution width (RBC) [Ratio] 13.1 % 11.6-14.6 [facility] Erythrocyte distribution wid th standard deviationOrdered By: Ezequiel Feliciano on 10-31-2024 Erythrocyte distribution width (RBC) [Ratio] 42.3 fl 35.1-43.9 [facility] Glomerular filtration rate ( GFR) estimation/1.73 sq m using serum, plasma, or whole bOrdered By: Ezequiel Feliciano on 10-31-2024 GFR/1.73 sq M.predicted among non-blacks MDRD (S/P/Bld) [Vol rate/Area] 118 mL/min/{1.73_m2} >60 [facility] Comment on above: mL/min/1.73m2 CKD-EP I Creatinine Equation (2020) Hematocrit Auto (Bld) [Volum e fraction]Ordered By: Ezequiel Feliciano on 10-31-2024 Hematocrit (Bld) [Volume fraction] 41.0 % 40-54 [facility] Hemoglobin measurementOrdere d By: Ezequiel Feliciano on 10-31-2024 Hemoglobin (Bld) [Mass/Vol] 14.8 g/dL 13.0-16.5 [facility] Immature granulocytes/100 WB C Auto (Bld)Ordered By: Ezequiel Feliciano on 10-31-2024 Immature granulocytes/100 WBC (Bld) 1.400 % High 0.0-0.9 [facility] Comment on above: IG% - Immature Granu locytes (promyelocytes, myelocytes and metamyelocytes) > 1% indicates that a LEFT SHIFT is Present. Laboratory - Chemistry and C hemistry - challengeOrdered By: Ezequiel Feliciano on 10-31-2024 AST [Catalytic activity/Vol] 21 U/L <38 [facility] MCV (mean corpuscular volume ) determinationOrdered By: Ezequiel Feliciano on 10-31-2024 MCV (RBC) [Entitic vol] 88.6 fL 80-94 [facility] Mean corpuscular hemoglobin (MCH) determinationOrdered By: Ezequiel Feliciano on 10-31-2024 MCH (RBC) [Entitic mass] 32.0 pg 27.0-32.0 [facility] Mean corpuscular hemoglobin concentration (MCHC) determinationOrdered By: Ezequiel Feliciano on 10-31-2024 MCHC (RBC) [Mass/Vol] 36.1 g/dL High 32-36 [facility] Mean platelet volume determi nationOrdered By: Ezequiel Feliciano on 10-31-2024 Platelet mean volume (Bld) [Entitic vol] 12.2 fL High 6.2-12.0 [facility] Monocyte percentageOrdered B y: Ezequiel Feliciano on 10-31-2024 Monocytes/100 WBC (Bld) 6.7 % 0-10 [facility] Neutrophil percentageOrdered By: Ezequiel Feliciano on 10-31-2024 Neutrophils/100 WBC (Bld) 71.5 % High 47-70 [facility] No Panel InformationOrdered By: zEequiel Feliciano on 10-31-2024 Urine Buprenorphine Qualitative Negative < 200 ng/mL [facility] Urine Oxycodone Screen Negative < 100 ng/mL [facility] Nucleated red blood cell per centageOrdered By: Ezequiel Feliciano on 10-31-2024 Nucleated RBC/100 WBC (Bld) [Ratio] 0 % 0-5 [facility] Platelet countOrdered By: Ravinder Feliciano on 10-31-2024 Platelets (Bld) [#/Vol] 212 10*3/uL 150-450 [facility] Potassium measurement (mass/ volume)Ordered By: Ezequiel Feliciano on 10-31-2024 Potassium (Unsp spec) [Mass/Vol] 4.3 mmol/L 3.3-5.1 [facility] Quantitative urine opiates m easurementOrdered By: Ezequiel Feliciano on 10-31-2024 Opiates Ql (U) Positive < 300 ng/mL [facility] Comment on above: If confirmation test ing is needed, a separate order will be required to send out testing to the reference laboratory. RBC Auto (Bld) [#/Vol]Ordere d By: Ezequiel Feliciano on 10-31-2024 RBC (Bld) [#/Vol] 4.63 10*6/uL 4.6-6.2 [facility] Screening urine fentanyl azalea surementOrdered By: Ezequiel Feliciano on 10-31-2024 fentaNYL Screen Ql (U) Negative [facility] Serum creatinine measurement (mass/volume)Ordered By: Ezequiel Feliciano on 10-31-2024 Creatinine [Mass/Vol] 0.78 mg/dL 0.70-1.20 [facility] Serum globulin measurementOr dered By: Ezequiel Feliciano on 10-31-2024 Globulin (S) [Mass/Vol] 2.6 g/dL 2.2-4.2 [facility] Serum glucose measurement (m ass/volume)Ordered By: Ezequiel Feliciano on 10-31-2024 Glucose [Mass/Vol] 206 mg/dL High 70-99 [facility] Serum or plasma acetaminophe n measurement (mass/volume)Ordered By: Ezequiel Feliciano on 10-31-2024 Acetaminophen [Mass/Vol] ug/mL Low 8.0-19.0 [facility] Comment on above: Acetaminophen concen trations > 200 ug/mL four hours after ingestion, > 100 ug/mL eight hours after ingestion, and > 50 ug/mL 12 hours after ingestion are potentially toxic. Serum or plasma alanine cruz otransferase (ALT) measurementOrdered By: Ezequiel Feliciano on 10-31-2024 ALT [Catalytic activity/Vol] 33 U/L <47 [facility] Serum or plasma albumin jorge luis urement (mass/volume)Ordered By: Ezequiel Feliciano on 10-31-2024 Albumin [Mass/Vol] 4.2 g/dL 3.5-5.0 [facility] Serum or plasma albumin/glob ulin mass ratioOrdered By: Ezequiel Feliciano on 10-31-2024 Albumin/Globulin [Mass ratio] 1.6 {ratio} 0.9-2.4 [facility] Serum or plasma alkaline renetta sphatase measurementOrdered By: Ezequiel Feliciano on 10-31-2024 ALP [Catalytic activity/Vol] 101 U/L 40-129 [facility] Serum or plasma calcium jorge luis urement (mass/volume)Ordered By: Ezequiel Feliciano on 10-31-2024 Calcium [Mass/Vol] 9.1 mg/dL 7.6-11.0 [facility] Serum or plasma ethanol jorge luis urement (mass/volume)Ordered By: Ezequiel Feliciano on 10-31-2024 Ethanol [Mass/Vol] mg/dL <10.1 [facility] Comment on above: This test is for med ical purposes only. The legal definition of intoxication varies according to local law. Serum or plasma salicylates measurement (mass/volume)Ordered By: Ezequiel Feliciano on 10-31-2024 Salicylates [Mass/Vol] mg/dL Low 2.8-20.0 [facility] Comment on above: Salicylate concentra tions > 30 mg/dL are potentially toxic.Salicylate concentrations exceeding 60 mg/dL can be lethal. Serum or plasma urea nitroge n measurement (mass/volume)Ordered By: Ezequiel Feliciano on 10-31-2024 Urea nitrogen [Mass/Vol] 14 mg/dL 4-19 [facility] Sodium levelOrdered By: Ezequiel Feliciano on 10-31-2024 Sodium [Moles/Vol] 136 mmol/L 133-145 [facility] Total proteinOrdered By: Herminio Feliciano on 10-31-2024 Protein [Mass/Vol] 6.8 g/dL 5.9-8.4 [facility] Urine benzodiazepine levelOr dered By: Ezequiel Feliciano on 10-31-2024 Benzodiazepines Ql (U) Negative < 200 ng/mL [facility] Urine cocaine levelOrdered B y: Ezequiel Feliciano on 10-31-2024 Cocaine Ql (U) Negative < 300 ng/mL [facility] Urine pfpam-1-stiecsjdwzmjvt abinol (THC) measurementOrdered By: Ezequiel Feliciano on 10-31-2024 Cannabinoids Screen Ql (U) Positive < 50 ng/mL [facility] Comment on above: If confirmation test ing is needed, a separate order will be required to send out testing to the reference laboratory. Urine phencyclidine (PCP) de tectionOrdered By: Ezequiel Feliciano on 10-31-2024 Phencyclidine Ql (U) Negative < 25 ng/mL [facility] White blood cell (WBC) count Ordered By: Ezequiel Feliciano on 10-31-2024 WBC (Bld) [#/Vol] 13.2 10*3/uL High 4.4-11.0 [facility] Absolute lymphocyte countOrd ered By: Luis E Sharma on 05-29-2023 Lymphocytes Auto (Unsp spec) [#/Vol] 1.02 10*3/uL 0.83-4.51 [facility] Alcohol, Blood (Medical)-Ser umon 05-29-2023 SERUM ETOH 137.0 mg/dL Normal [facility] Comment on above: Result Comment: The serum:whole blood ethanol ratio is approximately 1.14 and varies slightly with hematocrit. Medical Alcohol reference interval and critical value in non-tolerant individuals; 50 - 100 Impairment 100 Intoxication 100 - 250 Severe Poisoning 250 - 400 Deep/possible fatal coma Performed By: #### L 100.0100, L505.5000, L501.9100, L500.2500 #### [facility] [address] [place], [place], [id number] Automated blood hematocrit ( percentage)Ordered By: Luis E Sharma on 05-29-2023 Hematocrit (Bld) [Volume fraction] 45.7 % Normal 40-54 [facility] Comment on above: Performed By: #### L 100.0100, L505.5000, L501.9100, L500.2500 #### [facility] [address] [place], [place], [id number] Basic Metabolic Profile (BMP )on 05-29-2023 BUN/CRE 10.5 RATIO Normal 10-20 [facility] Comment on above: Performed By: #### L 100.0100, L505.5000, L501.9100, L500.2500 #### [facility] [address] [place], [address] CA,Total 8.4 mg/dL Low 8.5-10.1 [facility] Comment on above: Performed By: #### L 100.0100, L505.5000, L501.9100, L500.2500 #### [facility] [address] [place], [address] ECRCL 106.38 ml/min Normal [facility] Comment on above: Performed By: #### L 100.0100, L505.5000, L501.9100, L500.2500 #### [facility] [address] [place], [address] EST GFR - AA 115 mL/min Normal >60 [facility] Comment on above: Result Comment: Afri can [place] GFR Calc Performed By: #### L 100.0100, L505.5000, L501.9100, L500.2500 #### [facility] [address] [place], [address] GAP 6 Normal 5-15 [facility] Comment on above: Performed By: #### L 100.0100, L505.5000, L501.9100, L500.2500 #### [facility] [address] [place], [address] GFR/1.73 sq M.predicted among non-blacks MDRD (S/P/Bld) [Vol rate/Area] 95 mL/min/{1.73_m2} Normal >60 [facility] Comment on above: Result Comment: Non- GFR Calc Performed By: #### L 100.0100, L505.5000, L501.9100, L500.2500 #### [facility] [address] [place], [address] Basic Metabolic Profile (BMP )Ordered By: Luis E Sharma on 05-29-2023 CO2 [Moles/Vol] 24.0 mmol/L Normal 21.0-32.0 [facility] Comment on above: Performed By: #### L 100.0100, L505.5000, L501.9100, L500.2500 #### [facility] [address] [place], [address] Basophil percentageOrdered B y: Luis E Sharma on 05-29-2023 Chloride [Moles/Vol] 111 mmol/L High 98-107 [facility] Comment on above: Performed By: #### L 100.0100, L505.5000, L501.9100, L500.2500 #### [facility] [address] [place], [address] Glucose [Mass/Vol] 130 mg/dL High 74-106 [facility] Comment on above: Fasting Glucose resu lt greater than or equal to 126 mg/dL suggests DIABETES MELLITUS per A.D.A. criteria. Result Comment: Fast ing Glucose result greater than or equal to 126 mg/dL suggests DIABETES MELLITUS per A.D.A. criteria. Performed By: #### L 100.0100, L505.5000, L501.9100, L500.2500 #### [facility] [address] [place], [address] Potassium [Moles/Vol] 4.0 mmol/L Normal 3.5-5.1 [facility] Comment on above: Performed By: #### L 100.0100, L505.5000, L501.9100, L500.2500 #### [facility] [address] [place], [address] Sodium [Moles/Vol] 141 mmol/L Normal 136-145 [facility] Comment on above: Performed By: #### L 100.0100, L505.5000, L501.9100, L500.2500 #### [facility] [address] [place], [address] Basophils/100 WBC (Bld) 0.8 % Normal 0-1 [facility] Comment on above: Performed By: #### L 100.0100, L505.5000, L501.9100, L500.2500 #### [facility] [address] [place], [address] Eosinophils/100 WBC (Bld) 0.2 % Normal 0-5 [facility] Comment on above: Performed By: #### L 100.0100, L505.5000, L501.9100, L500.2500 #### [facility] [address] [place], [address] Neutrophils/100 WBC (Bld) 80.3 % High 47-70 [facility] Comment on above: Performed By: #### L 100.0100, L505.5000, L501.9100, L500.2500 #### [facility] [address] [place], [address] WBC (Bld) [#/Vol] 8.9 10*3/uL Normal 4.4-11.0 [facility] Comment on above: Performed By: #### L 100.0100, L505.5000, L501.9100, L500.2500 #### [facility] [address] [place], [address] Neutrophils (Bld) [#/Vol] 7.1 10*3/uL 2.0-7.7 [facility] Blood erythrocytes count (nu mber/volume)Ordered By: Luis E Sharma on 05-29-2023 RBC (Bld) [#/Vol] 5.10 10*6/uL Normal 4.6-6.2 [facility] Comment on above: Performed By: #### L 100.0100, L505.5000, L501.9100, L500.2500 #### [facility] [address] [place], [address] Blood hemoglobin measurement (mass/volume)Ordered By: Luis E Sharma on 05-29-2023 Hemoglobin (Bld) [Mass/Vol] 15.5 g/dL Normal 13.0-16.5 [facility] Comment on above: Performed By: #### L 100.0100, L505.5000, L501.9100, L500.2500 #### [facility] [address] [place], [address] Blood lymphocytes/100 leukoc ytesOrdered By: Luis E Sharma on 05-29-2023 Lymphocytes/100 WBC (Bld) 11.5 % Low 19-41 [facility] Comment on above: Performed By: #### L 100.0100, L505.5000, L501.9100, L500.2500 #### [facility] [address] [place], [address] Blood monocytes/100 leukocyt esOrdered By: Luis E Sharma on 05-29-2023 Monocytes/100 WBC (Bld) 6.1 % Normal 0-10 [facility] Comment on above: Performed By: #### L 100.0100, L505.5000, L501.9100, L500.2500 #### [facility] [address] [place], [address] Blood platelet mean volumeOr dered By: Luis E Sharma on 05-29-2023 Platelet mean volume (Bld) [Entitic vol] 12.2 fL High 6.2-12.0 [facility] Comment on above: Performed By: #### L 100.0100, L505.5000, L501.9100, L500.2500 #### [facility] [address] [place], [address] CBC W/Diff, Automatedon 01-0 Absolute Lymph 1.02 X10 3/uL Normal 0.83-4.51 [facility] Comment on above: Performed By: #### L 100.0100, L505.5000, L501.9100, L500.2500 #### [facility] [address] [place], [address] Absolute Neut 7.1 X10 3/uL Normal 2.0-7.7 [facility] Comment on above: Performed By: #### L 100.0100, L505.5000, L501.9100, L500.2500 #### [facility] [address] [place], [address] IG% 1.100 High 0.0-0.9 [facility] Comment on above: Result Comment: IG% - Immature Granulocytes (promyelocytes, myelocytes and metamyelocytes) > 1% indicates that a LEFT SHIFT is Present. Performed By: #### L 100.0100, L505.5000, L501.9100, L500.2500 #### [facility] [address] [place], [address] Nucleated RBC (Bld) [#/Vol] 0 10*3/uL Normal 0-5 [facility] Comment on above: Performed By: #### L 100.0100, L505.5000, L501.9100, L500.2500 #### [facility] [address] [place], [address] RDW SD 43.0 fl Normal 35.1-43.9 [facility] Comment on above: Performed By: #### L 100.0100, L505.5000, L501.9100, L500.2500 #### [facility] [address] [place], [address] CBC W/Diff, AutomatedOrdered By: Luis E Sharma on 05-29-2023 Erythrocyte distribution width (RBC) [Ratio] 13.1 % Normal 11.6-14.6 [facility] Comment on above: Performed By: #### L 100.0100, L505.5000, L501.9100, L500.2500 #### [facility] [address] [place], [address] MCH (RBC) [Entitic mass] 30.4 pg Normal 27.0-32.0 [facility] Comment on above: Performed By: #### L 100.0100, L505.5000, L501.9100, L500.2500 #### [facility] [address] [place], [address] Chest 1 View (Portable)on Chest 1 View (Portable) [facility] Imaging Services [address] [place] [address] Chest 1 View (Portable) MR#: [id number] Acct: [id number] Name: TORREY CRAIG Jr. Rep #: [id number] : 1985 M 38 From: Lokesh Mcarthur MD PCP: Dr. Chika Kenney MD Status: REG ER Study: Chest 1 View (Portable) Date of Exam: 05/29/23 Exam# [id number] Ordering [place]: [place] [id number] INDICATION: dyspnea EXAMINATION/TECHNIQUE: X-RAY - XR Chest 1 View COMPARISON: None. FINDINGS: LINES/DEVICES: None. LUNGS: No consolidation or evidence of an effusion. No evidence of edema or a pneumothorax. MEDIASTINUM AND CARDIOVASCULAR STRUCTURES: Cardiac silhouette is normal in size and contour. Mediastinum is unremarkable. BONES AND SOFT TISSUES: No acute abnormality. RAD/Chest 1 View (Portable) IMPRESSION: No evidence of cardiopulmonary disease. Electronically Signed: Lokesh Mcarthur DO at 7:04 EST , CC: Dr. Chika Kenney MD; Luis E Sharma DO Supervisor [employer]: Signed Normal [facility] Determination of erythrocyte mean corpuscular volume (MCV)Ordered By: Luis E Sharma on 05-29-2023 MCV (RBC) [Entitic vol] 89.6 fL Normal 80-94 [facility] Comment on above: Performed By: #### L 100.0100, L505.5000, L501.9100, L500.2500 #### [facility] [address] [facility] [place], [address] Emergency Department Summary on 05-29-2023 Emergency Department Summary [facility] Medical Records Department [address] [place] [address] Emergency Department Summary 05/29/23 MR#: [id number] Acct: [id number] Name: TORREY CRAIG JrMeka Rep #: [id number] : 1985 38 From: Luis E Sharma DO PCP: Dr. Chika Kenney MD Status:DEP ER Location: ED HPI History of Present Illness Chief Complaint: Overdose Informant: patient and EMS Narrative Narrative: Patient is a 38-year-old male with no reported significant past medical history. He reports he was at a [employer] party drinking this evening when the next he knows he is waking up by EMS. EMS states that they were called secondary to multiple overdoses and when they arrived the patient was unresponsive but breathing. EMS states they gave the patient approximately 3 Narcan's and he awoke. The patient states he did not deliberately take any type of opioid and reports he has no complaints at this time PFSH PFS Medical History no medical history Home Medications tramadol 50 mg tablet 50 mg PO Q4H PRN PRN Pain #20 tabs 03/18/15 [Rx Last Taken Unknown] ibuprofen 600 mg tablet 600 mg PO 4X/DAY #20 tabs 02/15/17 [Rx Last Taken Unknown] penicillin V potassium 500 mg tablet 500 mg PO 4X/DAY #40 tabs 02/15/17 [Rx Last Taken Unknown] Allergy/AdvReac Type Severity Reaction Status Date / Time cefaclor [facility] Allergy Hives Verified 05/29/23 05:36 Surgical History no surgical history Social History Smoking Status: Current every day smoker tobacco type: cigarettes ROS ROS ED Constitutional Constitutional ED: Denies chills or fever(s) Eyes Eyes: Denies change in vision ENT ENT ED: Denies sore throat Cardiovascular Cardiovascular: Denies chest pain Respiratory/Chest Respiratory/Chest: Denies cough or dyspnea Gastrointestinal Gastrointestinal: Denies abdominal pain, diarrhea, nausea or vomiting Genitourinary Genitourinary ED: Denies dysuria Musculoskeletal Musculoskeletal: Denies myalgias Integumentary Denies rash Neurologic Neurologic: Denies headache(s) Psychiatric Psychiatric: Denies suicidal ideation or suicidal thoughts Hematologic/Lymphatic Hematologic/Lymphatic: Denies easy bleeding or easy bruising EXAM Physical Exam Const Vital Signs: 05/29/23 05:28 Temperature 96.4 F L Temperature Source Temporal Pulse Rate 91 Respiratory Rate 15 Blood Pressure 133/77 H Blood Pressure Mean 95 Pulse Ox 89 Oxygen Delivery Method Room Air Positive well nourished and well developed General Appearance ED: well developed HEENT HEENT Narrative: Normocephalic atraumatic No tongue or lip swelling; no oral lesions no airway edema or compromise No signs of infection in the posterior pharynx Eyes PERRL and EOMs intact bilaterally Neck supple Neck Narrative: No nuchal rigidity or meningeal signs noted Resp normal respiratory effort Resp Narrative: Breath sounds are diminished throughout with faint rhonchi in the bilateral lower lobes Cardio regular rate and regular rhythm GI non-tender, non-distended and no masses Auscultation: hypoactive bowel sounds Palpation: soft Extremity normal to inspection Neuro oriented x3, CN's II-XII intact bilaterally and no sensory deficits noted Sensorium / Orientation: alert Motor Exam: strength 5/5 throughout Psych mental status grossly normal Skin no rashes or lesions noted MDM MDM MDM Narrative Medical decision making narrative: Patient presented to the ER with a pulse ox in the mid 80s but otherwise was awake and alert with stable vitals. As he was showing signs of hypoxia I did elect to check basic laboratory studies and a chest x-ray while he was placed on 2 L nasal cannula oxygen. Patient was awake and alert however and therefore there is no need for emergent airway stabilization or intubation. Blood work revealed no clinically significant findings and his toxin was positive for cocaine and marijuana as well as alcohol. The patient does admit to doing these things but denies any type of opioid ingestion indicating he most likely had fentanyl laced cocaine. The patient was watched in the ER for over 1 hour which is well beyond the 30-minute half-life of Narcan. He remained awake and alert and therefore there is low concern for progression to respiratory distress or mental status depression. As time went by and the medication metabolized out of his system he was breathing better and had improvement in his pulse ox. On room air he is now 90 to 94%. Does not have tachypnea or retractions accessory muscle use or depressed mental status. X-ray does not reveal any type of aspiration or pulmonary edema. Therefore do not feel there is need for admission to the hospital and he is otherwise safe for discharge Lab Data Labs: Laboratory Results - last 24 hr (more content not included)... Normal [facility] - Chemistry and C hemistry - challengeOrdered By: Luis E Sharma on 05-29-2023 Urea nitrogen/Creatinine [Mass ratio] 10.5 mg/mg 10-20 [facility] - Drug toxicology Ordered By: Luis E Sharma on 05-29-2023 Amphetamines Ql (U) Negative <1000 ng/mL [facility] Benzodiazepines Ql (U) Negative < 200 ng/mL [facility] Cannabinoids Screen Ql (U) Positive < 50 ng/mL [facility] Cocaine Ql (U) Positive < 300 ng/mL [facility] Opiates Ql (U) Negative < 300 ng/mL [facility] - Hematology and Cell countsOrdered By: Luis E Sharma on 05-29-2023 Erythrocyte distribution width (RBC) [Entitic vol] 43.0 fL 35.1-43.9 [facility] Immature granulocytes/100 WBC (Bld) 1.100 % 0.0-0.9 [facility] Comment on above: IG% - Immature Granu locytes (promyelocytes, myelocytes and metamyelocytes) > 1% indicates that a LEFT SHIFT is Present. Nucleated RBC/100 WBC (Bld) [Ratio] 0 % 0-5 [facility] MCHC [Mass/volume] by Automa evonne countOrdered By: Luis E Sharma on 05-29-2023 MCHC (RBC) [Mass/Vol] 33.9 g/dL Normal 32-36 [facility] Comment on above: Performed By: #### L 100.0100, L505.5000, L501.9100, L500.2500 #### [facility] [address] [place], [address] No Panel InformationOrdered By: Luis E Sharma on 05-29-2023 Estimated Creatinine Clearance Calc 106.38 ml/min [facility] Estimated GFR (MDRD) Amer 115 mL/min >60 [facility] Comment on above: GFR Calc Estimated GFR (MDRD) Non-Af Amer 95 mL/min >60 [facility] Comment on above: Non- GFR Calc Ethyl Alcohol Level 137.0 mg/dL [facility] Comment on above: The serum:whole bloo d ethanol ratio is approximately 1.14and varies slightly with hematocrit. Medical Alcohol reference interval and critical value innon-tolerant individuals; 50 - 100 Impairment 100 Intoxication 100 - 250 Severe Poisoning 250 - 400 Deep/possible fatal coma MDMA (Ecstasy) Screen Negative < 500 ng/mL [facility] Urine Barbiturates Screen Negative < 200 ng/mL [facility] Urine Drug Screen Comment [facility] Comment on above: CONFIRMATORY TESTING FOR ALL POSITIVE URINE DRUG SCREENRESULTS WILL ONLY BE SENT OUT UPON PHYSICIAN ORDER. VISTA Urine Drug Screen methods provide only preliminaryanalytical test results. A more specific alternate chemicalmethod must be used in order to obtain a confirmedanalytical result. Gas chromatography/mass spectrometery(GC/MS) is the preferred confirmatory method. Clinicalconsideration and professional judgement should be appliedto any drug of abuse test result, particularly whenpreliminary positive results are used. URINE TCA TESTING MUST BE ORDERED SEPARATELY. USE TESTMNEMONIC: [facility] Urine Methadone Screen Negative < 300 ng/mL [facility] Platelets bldOrdered By: George Sharma on 05-29-2023 Platelets (Bld) [#/Vol] 202 10*3/uL Normal 150-450 [facility] Comment on above: Performed By: #### L 100.0100, L505.5000, L501.9100, L500.2500 #### [facility] [address] [place], [address] Serum or plasma calcium jorge luis urement (mass/volume)Ordered By: Luis E Sharma on 05-29-2023 Calcium [Mass/Vol] 8.4 mg/dL 8.5-10.1 [facility] Serum or plasma creatinine m easurement (mass/volume)Ordered By: Luis E Sharma on 05-29-2023 Creatinine [Mass/Vol] 0.96 mg/dL Normal 0.70-1.30 [facility] Comment on above: The validity of the calculated GFR & GFRAA in patients over 70 years has not been determined. Clinical correlation is essential. Result Comment: The validity of the calculated GFR GFRAA in patients over 70 years has not been determined. Clinical correlation is essential. Performed By: #### L 100.0100, L505.5000, L501.9100, L500.2500 #### [facility] [address] [place], [address] Serum or plasma urea nitroge n measurement (mass/volume)Ordered By: Luis E Sharma on 05-29-2023 Urea nitrogen [Mass/Vol] 10 mg/dL Normal 7-18 [facility] Comment on above: Performed By: #### L 100.0100, L505.5000, L501.9100, L500.2500 #### [facility] [address] [place], [address] Thin prep Papanicolaou smear with manual screeningOrdered By: Luis E Sharma on 05-29-2023 Thin prep Papanicolaou smear with manual screening 6 5-15 [facility] Urine Drug Screen (VISTA)on 05-29-2023 AMPHETAMINES Negative Normal <1000 ng/mL [facility] Comment on above: Performed By: #### L 100.0100, L505.5000, L501.9100, L500.2500 #### [facility] [address] [place], [address] BARBITIURATES Negative Normal < 200 ng/mL [facility] Comment on above: Performed By: #### L 100.0100, L505.5000, L501.9100, L500.2500 #### [facility] [address] [place], [address] BENZODIAZIPINE Negative Normal < 200 ng/mL [facility] Comment on above: Performed By: #### L 100.0100, L505.5000, L501.9100, L500.2500 #### [facility] [address] [place], [address] COCAINE Positive Abnormal < 300 ng/mL [facility] Comment on above: Performed By: #### L 100.0100, L505.5000, L501.9100, L500.2500 #### [facility] [address] [place] [address] ECSTACY Negative Normal < 500 ng/mL [facility] Comment on above: Performed By: #### L 100.0100, L505.5000, L501.9100, L500.2500 #### [facility] [address] [place], [address] METHADONE Negative Normal < 300 ng/mL [facility] Comment on above: Performed By: #### L 100.0100, L505.5000, L501.9100, L500.2500 #### [facility] [address] [place], [place], [facility] OPIATES Negative Normal < 300 ng/mL [facility] Comment on above: Performed By: #### L 100.0100, L505.5000, L501.9100, L500.2500 #### [facility] [address] [place], [address] PCP Negative Normal < 25 ng/mL [facility] Comment on above: Performed By: #### L 100.0100, L505.5000, L501.9100, L500.2500 #### [facility] [address] [place], [address] THC Positive Abnormal < 50 ng/mL [facility] Comment on above: Performed By: #### L 100.0100, L505.5000, L501.9100, L500.2500 #### [facility] [address] [place], [address] VISTA UDS PH 5 Normal [facility] Comment on above: Performed By: #### L 100.0100, L505.5000, L501.9100, L500.2500 #### [facility] [address] [place], [address] Urine phencyclidine (PCP) de tectionOrdered By: Luis E Sharma on 05-29-2023 Phencyclidine Ql (U) Negative < 25 ng/mL [facility] RPR Ser Qlon 03-24-2023 Reagin Ab RPR Ql (S) Non-Reactive Normal Nonreactive C [facility] Comment on above: Order Comment: Speci men Type: BLOOD SPECIMEN Ordering Facility: [facility] Address: [address], [place] [address] Result Comment: Rapi d plasma reagin (RPR) test detects non-treponemal antibodies. RPR may be reactive in a variety of infectious and non-infectious conditions. Correlation with clinical picture and with treponemal antibody results is required for final interpretation. Performed By: #### 2 0507-0 #### [facility] CLIA [id number] [address] [place] [address] STATES OF [facility] CNOVon 06-12-2022 CNOV Office Visit ([facility] ) TORREY CRAIG ([id number]) 1985 M Date Time Provider Department 06/12/22 8:30 AM JOSE CARLOS DAVIS [facility] During your visit today, we recorded the following information about you: Temperature Pulse Respiration Blood pressure 97.8 degrees 63/minute 16/minute 130/80 Weight 107.1 kg Jose Carlos Davis MD 06/12/2022 9:03 AM Signed Patient presents with: Eye Problem: Pt reported [...] or vision change. Jose Carlos Davis MD Allergies As of Date: 06/12/2022 Noted Allergy Reaction CECLOR (CEFACLOR) 07/29/2006 4 - Hives Date Reviewed: 06/12/2022 Reviewed by: Veena Casas LPN - Fully Assessed Reason for Visit: Eye Problem [43] Cmt: Pt reported recent ATB, eye inf, tooth infection, denied current pain, reported current (RT) eye swelling, blurred vision, visual screen 20/25. Primary Visit Diagnosis:Hordeolum internum right upper eyelid [H00.021] Order(s):erythromycin (ROMYCIN) 5 mg/gram (0.5 %) ophthalmic ointmentUse 1 application in the right eye every 6 hours for 7 days.Disp: 3.5 gRfl: 0 Prescriptions as of 06/12/2022 - erythromycin (ROMYCIN) 5 mg/gram (0.5 %) ophthalmic ointment Use 1 application in the right eye every 6 hours for 7 days. - FLUoxetine (PROZAC) 20 mg capsule Take 20 mg by mouth once daily. Problem List As Of Date: 06/12/2022 (None) Prescriptions ordered this encounter Disp Refills Start End ERYTHROMYCIN 5 MG/GRAM (0.5 %) EYE O* 3.5 g 0 06/12/2022 06/19/2022 Route: RIGHT EYE Sig: Use 1 application in the right eye every 6 hours for 7 days. Letter Text Encounter Status:Closed by JOSE CARLOS DAVIS on 06/12/22 [facility] CNOVon 05-27-2022 CNOV Office Visit ([facility] ) TORREY CRAIG ([id number]) 1985 M Date Time Provider Department 05/27/22 10:45 AM RAMIRO WILLIAMSON During your visit today, we recorded the following information about you: Temperature Pulse Respiration Blood pressure 97.5 degrees 64/minute 16/minute 122/68 Weight 105.6 kg Ramiro Williamson APRN.CNP 05/27/2022 12:09 PM Signed This note was created using [employer] D[employer]. Subjective Torrey Craig is a 37 year old male. 37 [...] history is provided by the patient. No american sign language interpreter was used. Dental Problem This is a [...] friction rub. No gallop. Pulmonary: Effort: Pulmonary effo (more content not included)... Normal [facility] Vital Signs Date Time Vital Sign Value Performing Clinician Facility 10-31-2024 18:00-0400 Diastolic blood pressure 97 mm[Hg] Dr. Ezequiel Feliciano DO Work Phone: [phone])860-410268 [place] [address] 10-31-2024 18:00-0400 Heart rate 60 /min Dr. Ezequiel Feliciano DO Work Phone: 7(178)633-901268 [place] [address] 10-31-2024 18:00-0400 Systolic blood pressure 152 mm[Hg] Dr. Ezequiel Feliciano DO Work Phone: [phone])[phone] [place] [address] 10-31-2024 17:00-0400 SaO2% (BldA) [Mass fraction] 98 % Dr. Ezequiel Feliciano DO Work Phone: [phone])505-088638 [place] [address] 10-31-2024 16:00-0400 Respiratory rate 12 /min Dr. Ezequiel Feliciano DO Work Phone: 0([phone])772-314338 [place] [address] 10-31-2024 14:28-0400 Body temperature 96.9 [degF] Dr. Ezequiel Brandt Work Phone: [phone])[phone] [place] [address] 10-31-2024 12:24-0400 Body height 175.[address] Ezequiel Feliciano DO Work Phone: 4([phone])161-059538 [place] [address] 10-31-2024 12:24-0400 Body mass index (BMI) [Ratio] 35.9 kg/m2 Dr. Ezequiel Brandt Work Phone: [phone])760-259068 [place] [address] 10-31-2024 12:24-0400 Body weight 110.[address] Ezequiel Brandt Work Phone: 6([phone])411-935568 [place] [address] 05-29-2023 05:28-0500 Body height 175.[address] [facility] 05-29-2023 05:28-0500 Body mass index (BMI) [Ratio] 36.5 kg/m2 [facility] 05-29-2023 05:28-0500 Body temperature 96.4 [degF] [facility] 05-29-2023 05:28-0500 Body weight 112.[address] [facility] 05-29-2023 05:28-0500 Diastolic blood pressure 77 mm[Hg] [facility] 05-29-2023 05:28-0500 Heart rate 91 /min [facility] 05-29-2023 05:28-0500 Respiratory rate 15 /min [facility] 05-29-2023 05:28-0500 SaO2% (BldA) [Mass fraction] 89 % [facility] 05-29-2023 05:28-0500 Systolic blood pressure 133 mm[Hg] [facility] 06-12-2022 08:28-0500 Body temperature 97.81 [degF] Jose Carlos Davis MD Work Phone: [facility] 06-12-2022 08:28-0500 Body weight 107.14 kg Jose Carlos Davis MD Work Phone: [facility] 06-12-2022 08:28-0500 Diastolic blood pressure 80 mm[Hg] Jose Carlos Davis MD Work Phone: [facility] 06-12-2022 08:28-0500 Heart rate 63 /min Jose Carlos Davis MD Work Phone: [facility] 06-12-2022 08:28-0500 Respiratory rate 16 /min Jose Carlos Davis MD Work Phone: [facility] 06-12-2022 08:28-0500 SaO2% (BldA) [Mass fraction] 98 % Jose Carlos Davis MD Work Phone: [facility] 06-12-2022 08:28-0500 Systolic blood pressure 130 mm[Hg] Jose Carlos Davis MD Work Phone: [facility] 05-27-2022 10:45-0500 Body temperature 97.5 [degF] Ramiro Williamson ASSOCIATE PROFESSOR OF LIBRARY SCIENCE.PLATING AND POINT ASSEMBLY SUPERVISOR Work Phone: [facility] 05-27-2022 10:45-0500 Body weight 105.6 kg Ramiro Williamson ASSOCIATE PROFESSOR OF LIBRARY SCIENCE.PLATING AND POINT ASSEMBLY SUPERVISOR Work Phone: [facility] 05-27-2022 10:45-0500 Diastolic blood pressure 68 mm[Hg] Ramiro Williamson ASSOCIATE PROFESSOR OF LIBRARY SCIENCE.PLATING AND POINT ASSEMBLY SUPERVISOR Work Phone: [facility] 05-27-2022 10:45-0500 Heart rate 64 /min Ramiroifeoma Williamson ASSOCIATE PROFESSOR OF LIBRARY SCIENCE.PLATING AND POINT ASSEMBLY SUPERVISOR Work Phone: [facility] 05-27-2022 10:45-0500 Respiratory rate 16 /min Ramiroifeoma Williamson ASSOCIATE PROFESSOR OF LIBRARY SCIENCE.PLATING AND POINT ASSEMBLY SUPERVISOR Work Phone: [facility] 05-27-2022 10:45-0500 SaO2% (BldA) [Mass fraction] 97 % Ramiroifeoma Williamson ASSOCIATE PROFESSOR OF LIBRARY SCIENCE.PLATING AND POINT ASSEMBLY SUPERVISOR Work Phone: [facility] 05-27-2022 10:45-0500 Systolic blood pressure 122 mm[Hg] Ramiroifeoma Williamson ASSOCIATE PROFESSOR OF LIBRARY SCIENCE.PLATING AND POINT ASSEMBLY SUPERVISOR Work Phone: [facility] Encounters Encounter Date Encounter Type Care Provider Facility Start: 10-31-2024 Evaluation and manag ement of inpatient Dr. Lane Calderon DO -Intensive Care Unit Work Phone: Start: 10-31-2024 Non-patient / Non-visit [facility]. Rosario [facility] Work Phone: Start: 05-29-2023 End: 05-29-2023 Emergency department patient visit [facility] Facility:[facility] Start: 05-29-2023 End: 05-29-2023 Emergency department patient visit [facility]-Emergency Department Work Phone: Start: 06-12-2022 End: 06-12-2022 ambulatory Facility:[facility] Start: 06-12-2022 End: 06-12-2022 Patient encounter procedure Jose Carlos Davis MD Work Phone: [facility] Comment on above: Hordeolum internum r ight upper eyelid (Primary Dx) Start: 05-27-2022 End: 05-27-2022 ambulatory Facility:[facility] Start: 05-27-2022 End: 05-27-2022 Patient encounter procedure Ramiro Leslie ASSOCIATE PROFESSOR OF LIBRARY SCIENCE.PLATING AND POINT ASSEMBLY SUPERVISOR Work Phone: [facility] Comment on above: Conjunctivitis of le ft eye, unspecified conjunctivitis type (Primary Dx); Pain, dental Procedures Date Procedure Procedure Detail Performing Clinician Start: 10-31-2024 Methadone measuremen t, urine Dr. Ezequiel Brandt Work Phone: Start: 10-31-[address] Ezequiel Brandt Work Phone: Start: 05-29-2023 Plain chest X-ray Plan of Treatment Date Care Activity Detail Author Start: 11-01-2024 Suicide precautions [facility] Start: 10-31-2024 Hospital admission, emergency, from emergency room, medical nature [facility] Start: 10-31-2024 Verification routine [facility] Start: 10-31-2024 Admission procedure [facility] Start: 10-31-2024 Suicide precautions [facility] Start: 10-31-2024 [facility] Start: 05-29-2023 [facility] Start: 05-24-2022 DEPRESSION ASSESSMENT DEPRESSION ASSESSMENT [facility] Start: 2022 LIPID SCREEN LIPID SCREEN [facility] Start: 01-22-2022 Influenza vaccination INFLUENZA (#1) [facility] Start: 2006 Urine microalbumin profile DTAP,TDAP,TD (1 - Tdap) [facility] Start: 2005 HEPATITIS C SCREENING HEPATITIS C SCREENING [facility] Start: 2005 HIV SCREENING HIV SCREENING [facility] Start: 1993 PNEUMOCOCCAL (1 - PCV) PNEUMOCOCCAL (1 - PCV) [facility] ic Start: 1985 COVID-19 VACCINE (#1) COVID-19 VACCINE (#1) [facility] Start: 1987 HEPATITIS B (1 of 3 - 3-dose series) HEPATITIS B (1 of 3 - 3-dose series) [facility] Patient Education Naloxone Nasal for Overdose Steps ED Overdose, Opiate [facility] Work Phone: Patient referral [facility] Work Phone: Immunizations Immunization Date Immunization Notes Care Provider Jairo echeverria 01-07-2000 measles, mumps and rubella virus vaccine Ramiro Williamson APRN.CNP Work Phone: [facility] Payers Date Payer Category Payer Self-pay [id number] 2022 Medicaid MEDICAID [facility] MEDICAID [id number] 2022-Present [phone] [address] [place] [address] Medicaid [id number] 2022 Medicaid [id number] 2016 Unknown EDUARDO [id number] Unknown [id number] Social History Date Type Detail Facility Start: 06-12-2022 End: 10-31-2024 Tobacco smoking status NHIS Smokes tobacco daily [facility] History of tobacco use Cigarette Smoker C [facility] History of tobacco use Cigar Smoker [facility] Start: 11-03-2013 End: 06-12-2022 Alcohol intake Current non-drinker of alcohol (finding) [facility] Start: 1985 Sex Assigned At Not on file C [facility] Start: 06-12-2022 Cigarettes smoked current (pack per day) - Reported 1 [facility] Start: 06-12-2022 Tobacco use and exposure Smokeless tobacco non-user [facility] Start: 05-29-2023 Tobacco smoking stat us GAIS Unknown if ever smoked [facility] Start: 1985 Sex Assigned At Male [facility] Clinical Notes 05-27-2022 to 10-31-2024 Note Date & Type Note Facility 10-31-2024 Discharge summary [facility] 10-31-2024 History and physi karen note Note Date/Time October 31, 2024 3:26pm [facility] Medical Records Department [address] [place] [address] H&P Exam - Hospitalist 10/31/24 1433 MR#: [id number] Acct: [id number] Name: KIARATORREY MARQUITA Arambula Rep #:[id number] : 1985 39 From: Lane lu DO PCP: Care Physician,No Primary Status :REG ER Location: ED HPI - General General Date of Admission: 10/31/24 Date of Service: 10/31/24 Chief Complaint: Intentional clonidine overdose HPI Narrative TORREY CRAIG, is a 39 M who presented to [facility] ED on 10/31/24 after an intentional clonidine overdose. Patient takes clonidine 0.1 mgbefore work morning for anxiety and depression. Noted that he had been under significant stress recently from his ex significant other. Because of the stress he reported wanting to sleep and took at least 60 tabs of his 0.1 mg clonidine pills. No prior history of intentional overdose. Denies any other ingestions. He does follow with psychiatry in the outpatient setting but has never been hospitalized for psychiatric issues. Per ED physician, there was a picture from the police that confirmed a fill of 0.1 mg of clonidine for 80 tabs, though the fill date was not shown. On arrival to the ED he was mildly somnolent but protecting his airway without issue. Heart rate was in the low 40s and EKG showed sinus bradycardia with first-degree AV block. However he washypertensive to the 150s and 160s systolic. ED physician discussed with poison control who recommended only monitoring at this point. Patient was calm until he was told he would be pink slipped for psychiatric hold; at that time he triedto walk out of the ED and took 4 officers to get back into his room. Haldol, Ativan and Benadryl were ordered but did not need to be given as patient was able to be redirected back into bed and agreed to stay without issue. Given hisongoing bradycardia and need for 24 hours of monitoring, hospitalist was contacted for admission. I saw the patient at bedside in the ED. Patient was sleeping when I arrived to the room. Upon awakening, he was somewhat somnolent but was answering questionsappropriately for me. He denied any acute pain or discomfort. No other acute concerns at this time. [facility] Medical History no medical history Home Medications ?Medication ?Instructions ?Recorded ?Last Taken ?Type clonidine HCl 0.1 mg tablet 0.05 - 0.1 mg PO BID PRN P RN 10/31/24 10/31/24 History anxiety fluoxetine 20 mg capsule 20 mg PO DAILY 10/31/2410/22 History Allergy/AdvReac Type Severity Reaction Status Date / Time [facility] ([facility] Allergy Hives Verified 10/31/24 12:24 Family History no significant family his Surgical History no surgical history Social History Smoking Status: Current every day smoker tobacco type: cigarettes ROS Constitutional Constitutional: Reports fatigue; Denies chills, fever(s) or weakness Eyes Eyes: Denies change in vision Cardiovascular Cardiovascular: Denies chest pain Respiratory/Chest Respiratory/Chest: Denies shortness of breath at rest Gastrointestinal Gastrointestinal: Denies abdominal pain Neurologic Neurologic: Denies dizziness, focal weakness or headache(s) Psychiatric Psychiatric: Reports anxiety and depression; Denies homicidal ideation or suicidal ideation Vital Signs Vital Signs Vital Signs: 10/31/24 12:24 10/31/24 12:24 10/31/24 13:24 Temperature 96.9 F L Temperature Source Oral Pulse Rate 43 L 45 L Respiratory Rate 14 17 Blood Pressure 152/104 H 168/97 H Blood Pressure Mean 120 120 Pulse Ox 99 98 Oxygen Delivery Method Room Air Room Air Room Air 10/31/24 14:00 10/31/24 14:28 Temperature 96.9 F L Temperature Source Pulse Rate 43 L 44 L Respiratory Rate 10 L 11 L Blood Pressure 158/78 H 158/78 H Blood Pressure Mean 104 104 Pulse Ox 100 100 Oxygen Delivery Method Room Air Weight Weight: 110.5 kg Body Mass Index (BMI) 35.9 Physical Exam Const alert, oriented x3 and no apparent distress Constitutional Narrative: Younger male, class II obesity, mildly somnolent appearing, otherwise laying back comfortably in bed, conversing normally, in no acute distress. General Appearance: cooperative and comfortable HEENT normocephalic, head/scalp atraumatic, hearing grossly normal bilaterally, nasal mucous membranes and turbinates normal and moist oral mucous membranes Eyes PERRL, EOMs intact bilaterally and conjunctivae normal Neck full ROM Chest inspection of chest normal Resp normal respiratory effort, normal air movement, no use of accessory muscles and clear to auscultation bilaterally Cardio no murmurs and peripheral pulses 2+ throughout Cardio Narrative: Bradycardic, regular rhythm. GI normal to inspection, nondistended, normoactive bowel sounds, soft to palpation,non-tender and non-distended Back/Spine normal ROM Extremity normal to inspection, full ROM and no pedal edema Skin no rashes or lesions noted Psych Psych Narrative: Mildly somnolent with flat affect. Mood & Affect: depressed Results Lab / Micro Data 10/31/24 12:50 10/31/24 12:50 Labs: Laboratory Results - last 24 hr 10/31/24 12:50: WBC 13.2 H, RBC 4.63, Hgb 14.8, Hct 41.0, MCV 88.6, MCH 32.0, MCHC 36.1 H, RDW Std Deviation 42.3, RDW Coeff of Mio 13.1, Plt Count 212, MPV 12.2 H, Immature Gran % (Auto) 1.400 H, Neut % (Auto) 71.5 H, Lymph % (Auto) 17.3 L, Ramsey % (Auto) 6.7, Eos % (Auto) 2.3, Baso % (Auto) 0.8, Absolute Neuts (auto) 9.5 H, Absolute Lymphs (auto) 2.29, Nucleated RBC % 0, Sodium 136, Potassium 4.3, Chloride 104, Carbon Dioxide 22.8, Anion Gap 10, BUN 14, Creatinine 0.78, Estim Creat Clear Calc 158.87, Est GFR (MDRD) Non-Af 118, BUN/Creatinine Ratio 17.5, Glucose 206 H, Calcium 9.1, Total Bilirubin 0.37, AST21, ALT 33, Alkaline Phosphatase 101, Total Protein 6.8, Albumin 4.2, Globulin 2.6, Albumin/Globulin Ratio 1.6, Salicylates < 0.5 L, Acetaminophen < 5.0 L, Ethyl Alcohol < 10.1 10/31/24 13:20: Urine Opiates Screen PRESUMPTIVE POSITIVE, U Buprenorphine Qual NEGATIVE, Ur Oxycodone Screen NEGATIVE, Urine Methadone Screen NEGATIVE, Urine Fentanyl Screen NEGATIVE, Ur Barbiturates Screen NEGATIVE, Ur Phencyclidine ScrnNEGATIVE, Ur Amphetamines Screen NEGATIVE, U Benzodiazepines Scrn NEGATIVE, Urine Cocaine Screen NEGATIVE, U Cannabinoids Screen PRESUMPTIVE POSITIVE Assessment & Plan Assessment/Plan (1) Intentional overdose of clonidine: PLAN: Plan Patient is a 39-year-old male who presented to [facility] ED on 10/31/24 for intentional clonidine overdose. 1. Intentional clonidine overdose ? Admit under inpatient status to ICU. Reportedly took about 60 tablets of clonidine 0.1 mg. Typically takes clonidine 0.1 mg every morning for anxiety/depression. He denied suicidal ideation; rather stated he took this because he has been under a lot of stress and wanted to sleep. Bradycardic in the ED with rate in the 40s, with EKG showing sinus bradycardia with first-degree AV block. BP normal. Mild somnolence but no concern for airway issues. Monitor closely overnight. [place] slip in place and patient will require inpatient psychiatric hospitalization once medically cleared. 2. Elevated BP ? Hypertensive to the 150s to 160s systolic in the ED. No reported history of hypertension. Suspect this could be some degree of rebound hypertension in setting of clonidine overdose. Will order IV hydralazine as needed for SBP greater than 170. 3. Anxiety/depression ? Psychiatric hold in place as noted above. Continue home fluoxetine. Holding clonidine. 4. Class II obesity ? BMI 36 on admit. Complicates hospital course, care and prognosis. DVT prophylaxis: Lovenox CODE STATUS: Full code, unverified Expected disposition: Inpatient psych, TBD Total clinical time spent by myself addressing the patient's medical issues, reviewing all the data, and collaborating with patient's care team: 55 minutes. Charges/Coding Visit Charges Inpatient E&M: 98762 Init Hosp L2 10/31/24 1526 <Electronically signed by Lane Calderon DO> Cosigner Signature (if applicable): CC: Dr. Lane Calderon, ; No Primary Care Physician~ Signed [facility] Work Phone: 1(250) 749-334206-10-2025 Evaluation note* Diagnosis Onset Date Resolution Status Admit Date Intentional overdose of clonidine ac sean October 31, 2024 2:37pm [facility] Work Phone: [phone]) 754-561106-10-2025 History and physical note [facility] Medical Records Department [address] [place] [address] H&P Exam - Hospitalist 10/31/24 1433 MR#: [id number] Acct: [id number] Name: KIARATORREY MARQUITA Arambula Rep #:[id number] : 1985 39 From: Lane lu DO PCP: Care Physician,No Primary Status :REG ER Location: ED HPI - General General Date of Admission: 10/31/24 Date of Service: 10/31/24 Chief Complaint: Intentional clonidine overdose HPI Narrative TORREY CRAIG, is a 39 M who presented to [facility] ED on 10/31/24 after an intentional clonidine overdose. Patient takes clonidine 0.1 mgbefore work morning for anxiety and depression. Noted that he had been under significant stress recently from his ex significant other. Because of the stress he reported wanting to sleep and took at least 60 tabs of his 0.1 mg clonidine pills. No prior history of intentional overdose. Denies any other ingestions. He does follow with psychiatryin the outpatient setting but has never been hospitalized for psychiatric issues. Per ED physician,there was a picture from the police that confirmed a fill of 0.1 mg of clonidine for 80 tabs, though the fill date was not shown. On arrival to the ED he was mildly somnolent but protecting his airway without issue. Heart rate was in the low 40s and EKG showed sinus bradycardia with first-degree AVblock. However he washypertensive to the 150s and 160s systolic. ED physician discussed with poisoncontrol who recommended only monitoring at this point. Patient was calm until he was told he would be pink slipped for psychiatric hold; at that time he triedto walk out of the ED and took 4 officersto get back into his room. Haldol, Ativan and Benadryl were ordered but did not need to be given aspatient was able to be redirected back into bed and agreed to stay without issue. Given hisongoing b radycardia and need for 24 hours of monitoring, hospitalist was contacted for admission. I saw the patient at bedside in the ED. Patient was sleeping when I arrived to the room. Upon awakening, he was somewhat somnolent but was answering questionsappropriately for me. He denied any acutepain or discomfort. No other acute concerns at this time. [facility] Medical History no medical history Home Medications ?Medication ?Instructions ?Recorded ?Last Taken ?Type clonidine HCl 0.1 mg tablet 0.05 - 0.1 mg PO BID PRN P RN 10/31/24 10/31/24 History anxiety fluoxetine 20 mg capsule 20 mg PO DAILY 10/31/2410/22 History Allergy/AdvReac Type Severity Reaction Status Date / Time [facility]lor ([facility]) Allergy Hives Verified 10/31/24 12:24 Family History no significant family his Surgical History no surgical history Social History Smoking Status: Current every day smoker tobacco type: cigarettes ROS Constitutional Constitutional: Reports fatigue; Denies chills, fever(s) or weakness Eyes Eyes: Denies change in vision Cardiovascular Cardiovascular: Denies chest pain Respiratory/Chest Respiratory/Chest: Denies shortness of breath at rest Gastrointestinal Gastrointestinal: Denies abdominal pain Neurologic Neurologic: Denies dizziness, focal weakness or headache(s) Psychiatric Psychiatric: Reports anxiety and depression; Denies homicidal ideation or suicidal ideation Vital Signs Vital Signs Vital Signs: 10/31/24 12:24 10/31/24 12:24 10/31/24 13:24 Temperature 96.9 F L Temperature Source Oral Pulse Rate 43 L 45 L Respiratory Rate 14 17 Blood Pressure 152/104 H 168/97 H Blood Pressure Mean 120 120 Pulse Ox 99 98 Oxygen Delivery Method Room Air Room Air Room Air 10/31/24 14:00 10/31/24 14:28 Temperature 96.9 F L Temperature Source Pulse Rate 43 L 44 L Respiratory Rate 10 L 11 L Blood Pressure 158/78 H 158/78 H Blood Pressure Mean 104 104 Pulse Ox 100 100 Oxygen Delivery Method Room Air Weight Weight: 110.5 kg Body Mass Index (BMI) 35.9 Physical Exam Const alert, oriented x3 and no apparent distress Constitutional Narrative: Younger male, class II obesity, mildly somnolent appearing, otherwise laying back comfortably in bed, conversing normally, in no acute distress. General Appearance: cooperative and comfortable HEENT normocephalic, head/scalp atraumatic, hearing grossly normal bilaterally, nasal mucous membranes and turbinates normal and moist oral mucous membranes Eyes PERRL, EOMs intact bilaterally and conjunctivae normal Neck full ROM Chest inspection of chest normal Resp normal respiratory effort, normal air movement, no use of accessory muscles and clear to auscultation bilaterally Cardio no murmurs and peripheral pulses 2+ throughout Cardio Narrative: Bradycardic, regular rhythm. GI normal to inspection, nondistended, normoactive bowel sounds, soft to palpation,non-tender and non-distended Back/Spine normal ROM Extremity normal to inspection, full ROM and no pedal edema Skin no rashes or lesions noted Psych Psych Narrative: Mildly somnolent with flat affect. Mood & Affect: depressed Results Lab / Micro Data 10/31/24 12:50 10/31/24 12:50 Labs: Laboratory Results - last 24 hr 10/31/24 12:50: WBC 13.2 H, RBC 4.63, Hgb 14.8, Hct 41.0, MCV 88.6, MCH 32.0, MCHC 36.1 H, RDW Std Deviation 42.3, RDW Coeff of Mio 13.1, Plt Count 212, MPV 12.2 H, Immature Gran % (Auto) 1.400 H, Neut % (Auto) 71.5 H, Lymph % (Auto) 17.3 L, Ramsey % (Auto) 6.7, Eos % (Auto) 2.3, Baso % (Auto) 0.8, Absolute Neuts (auto) 9.5 H, Absolute Lymphs (auto) 2.29, Nucleated RBC % 0, Sodium 136, Potassium 4.3, Chloride 104, Carbon Dioxide 22.8, Anion Gap 10, BUN 14, Creatinine 0.78, Estim Creat Clear Calc 158.87, Est GFR (MDRD) Non-Af 118, BUN/Creatinine Ratio 17.5, Glucose 206 H, Calcium 9.1, Total Bilirubin 0.37, AST21, ALT 33, Alkaline Phosphatase 101, Total Protein 6.8, Albumin 4.2, Globulin 2.6, Albumin/Globulin Ratio 1.6, Salicylates < 0.5 L, Acetaminophen < 5.0 L, Ethyl Alcohol < 10.1 10/31/24 13:20: Urine Opiates Screen PRESUMPTIVE POSITIVE, U Buprenorphine Qual NEGATIVE, Ur Oxycodone Screen NEGATIVE, Urine Methadone Screen NEGATIVE, Urine Fentanyl Screen NEGATIVE, Ur Barbiturates Screen NEGATIVE, Ur Phencyclidine ScrnNEGATIVE, Ur Amphetamines Screen NEGATIVE, U BenzodiazepinesScrn NEGATIVE, Urine Cocaine Screen NEGATIVE, U Cannabinoids Screen PRESUMPTIVE POSITIVE Assessment & Plan Assessment/Plan (1) Intentional overdose of clonidine: PLAN: Plan Patient is a 39-year-old male who presented to [facility] ED on 10/31/24 for intentional clonidine overdose. 1. Intentional clonidine overdose ? Admit under inpatient status to ICU. Reportedly took about 60 tablets of clonidine 0.1 mg. Typically takes clonidine 0.1 mg every morning for anxiety/depression. He denied suicidal ideation; ratherstated he took this because he has been under a lot of stress and wanted to sleep. Bradycardic in th e ED with rate in the 40s, with EKG showing sinus bradycardia with first-degree AV block. BP normal. Mild somnolence but no concern for airway issues. Monitor closely overnight. [place] slip in place and patient will require inpatient psychiatric hospitalization once medically cleared. 2. Elevated BP ? Hypertensive to the 150s to 160s systolic in the ED. No reported history of hypertension. Suspectthis could be some degree of rebound hypertension in setting of clonidine overdose. Will order IV hydralazine as needed for SBP greater than 170. 3. Anxiety/depression ? Psychiatric hold in place as noted above. Continue home fluoxetine. Holding clonidine. 4. Class II obesity ? BMI 36 on admit. Complicates hospital course, care and prognosis. DVT prophylaxis: Lovenox CODE STATUS: Full code, unverified Expected disposition: Inpatient psych, TBD Total clinical time spent by myself addressing the patient's medical issues, reviewing all the data, and collaborating with patient's care team: 55 minutes. Charges/Coding Visit Charges Inpatient E&M: 11212 Init Hosp L2 10/31/24 1526 Cosigner Signature (if applicable): CC: Dr. Lane Calderon DO; No Primary Care Physician~ Signed [facility]06-10-2025 Discharge summary Author Ezequiel Le [facility] Note Date/Time October 31, 2024 5:[address] [facility] Medical Records Department [address] [place] [address] Emergency Department Summary 10/31/24 MR#: [id number] Acct: [id number] Name: TORREY CRAIG Rep #:[id number] : 1985 39 From: Ezequiel Brandt PCP: Care Physician,No Primary Status :ADM IN Location: ICU ICU03-1 HPI HPI - Psych History of Present Illness Chief Complaint: Overdose Informant: patient and EMS Narrative Narrative: Brought in by EMS for intentional overdose ingestion 10:30 AM 2 hours ago. Patient states stress from his ex-spouse and ex significant other. He has prescription for clonidine 0.1 mg which he takes every morning before work for anxiety and depression. He states due to stress he just wanted to sleep and have taken at least 60 tabs of his 0.1 mg pills. He took it into large swallowsper patient. Denies any other ingestions. He follows psychiatry. He states never been hospitalized for psychiatric issues in the past. Denies any overdosein the past. Denies any current symptoms of nausea or vomiting or drowsiness. Picture from police deputy 0.1 mg confirm filled on 80 tabs however picture did not show the date filled. Prior similar symptoms: No PFSH PFSH Medical History no medical history Home Medications ?Medication ?Instructions ?Recorded ?Last Taken ?Type clonidine HCl 0.1 mg tablet 0.05 - 0.1 mg PO BID PRN P RN 10/31/24 10/31/24 History anxiety fluoxetine 20 mg capsule 20 mg PO DAILY 10/31/2410/22 History Allergy/AdvReac Type Severity Reaction Status Date / Time [facility]efaclor ([facility]) Allergy Hives Verified 10/31/24 12:24 Family History no significant family his Surgical History no surgical history Social History Smoking Status: Current every day smoker tobacco type: cigarettes ROS ROS ED Constitutional Constitutional ED: Denies fever(s) Cardiovascular Cardiovascular: Denies chest pain Respiratory/Chest Respiratory/Chest: Denies cough Gastrointestinal Gastrointestinal: Denies diarrhea or vomiting Musculoskeletal Musculoskeletal: Denies none Integumentary Denies rash or wounds Neurologic Neurologic: Denies weakness Psychiatric Psychiatric: Reports anxiety, depression and other Details: Stressed EXAM Physical Exam Const Vital Signs: 10/31/24 12:24 10/31/24 12:24 10/31/24 13:24 Temperature 96.9 F L Temperature Source Oral Pulse Rate 43 L 45 L Respiratory Rate 14 17 Blood Pressure 152/104 H 168/97 H Blood Pressure Mean 120 120 Pulse Ox 99 98 Oxygen Delivery Method Room Air Room Air Room Air 10/31/24 14:00 10/31/24 14:28 Temperature 96.9 F L Temperature Source Pulse Rate 43 L 44 L Respiratory Rate 10 L 11 L Blood Pressure 158/78 H 158/78 H Blood Pressure Mean 104 104 Pulse Ox 100 100 Oxygen Delivery Method Room Air Positive well nourished and well developed General Appearance ED: well developed and NAD HEENT Reports moist mucous membranes normocephalic and atraumatic Eyes General Eye ED: Yes normal appearance of both eyes Neck full ROM Chest Wall Chest: Negative for tenderness Resp normal respiratory effort and normal air movement Effort and Inspection: symmetric chest movement; Negative for respiratory distress Cardio no murmurs Rate: bradycardia Peripheral Pulses: pulses 2+ throughout GI normal to inspection, nondistended, normoactive bowel sounds and non-tender Palpation: Negative for guarding or rebound tenderness present Extremity normal to inspection General Extremety ED: Negative for edema or tenderness General Extremity: Negative for edema Neuro oriented x3 and no sensory deficits noted Sensorium / Orientation: awake and alert Psych Psych Narrative: Cooperative, nontoxic. Skin no rashes or lesions noted and no wounds MDM MDM MDM Narrative Medical decision making narrative: Interventions / MDM: Differential diagnosis: Intentional overdose, history of anxiety and depression,bradycardia Diagnosis considered but do not suspect: N/A My EKG interpretation: Sinus rate of 45, no ST changes. QTc 375. Imaging independently reviewed and interpreted by myself: N/A External documents reviewed: N/A Test considered but not ordered:N/A ED course: Intentional overdose 2 hours prior to arrival current vitals pulse of43 blood pressure 152/104. Psychiatric labs ordered including aspirin and Tylenol levels. 1240: I spoke with poison control, discussed his ingestion 2 hours ago. They report monitoring for his vitals if he clinically does not develop drowsiness orsymptoms can clear after 6 hours however if he does start having clinical symptoms he would need 24 hours of monitoring. 1300: Patient is reporting some fatigue. Stating if he lays down it fall asleepin 20 minutes. Hemoglobin 14.8 white count 13.2. 1340: after reevaluate the patient, he is now stating he was not drowsy, sittingon the room states only for last 10 seconds. I discussed with him he likely hospitalization as somnolence is part of side effects even though he did not sleep last night. Discussed he will be on a psychiatric hold for intentional ingestion. Shortly after he tried to walk out of the department. Security and PD contacted. Will order for Haldol Ativan and Benadryl for chemical sedation. [place] slip has been filled out. 1359: [place] police was in the department. Medications not been given. Took 4officers to get him back to the room. He was tearful being apologetic stating he will cooperate. He states first time he is being pink slipped. Discussed with him medically he needs to make sure he is safe with his vitals and his ingestion. Discussed he will need psychiatric evaluation and clearance prior togoing home to his family and children. He understands this. He states he is willing to cooperate therefore medications will be held at this time. Toxicology THC opiates, alcohol negative. Aspirin and Tylenol negative. Will discuss with hospitalist service for admission. I discussed with Dr. Calderon for admission to ICU. Re-evaluation: stable Disposition discussed with patient/family/significant other: Patient and significant other Case discussed with consulting clinician: Hospitalist This note was generated with [employer] dictation software. It may contain incorrectwords, spelling, and punctuation that were not noted in checking the note beforesigning. Lab Data Attestation: I reviewed the patient's lab results. Labs: Laboratory Results - last 24 hr 10/31/24 10/31/24 12:50 13:20 WBC 13.2 H RBC 4.63 Hgb 14.8 Hct 41.0 MCV 88.6 MCH 32.0 MCHC 36.1 H RDW Std Deviation 42.3 RDW Coeff of Mio 13.1 Plt Count 212 MPV 12.2 H Immature Gran % (Auto) 1.400 H Neut % (Auto) 71.5 H Lymph % (Auto) 17.3 L Ramsey % (Auto) 6.7 Eos % (Auto) 2.3 Baso % (Auto) 0.8 Absolute Neuts (auto) 9.5 H Absolute Lymphs (auto) 2.29 Nucleated RBC % 0 Sodium 136 Potassium 4.3 Chloride 104 Carbon Dioxide 22.8 Anion Gap 10 BUN 14 Creatinine 0.78 Estim Creat Clear Calc 158.87 Est GFR (MDRD) Non-Af 118 BUN/Creatinine Ratio 17.5 Glucose 206 H Calcium 9.1 Total Bilirubin 0.37 AST 21 ALT 33 Alkaline Phosphatase 101 Total Protein 6.8 Albumin 4.2 Globulin 2.6 Albumin/Globulin Ratio 1.6 Salicylates < 0.5 L Urine Opiates Screen PRESUMPTIVE POSITIVE U Buprenorphine Qual NEGATIVE Ur Oxycodone Screen NEGATIVE Urine Methadone Screen NEGATIVE Urine Fentanyl Screen NEGATIVE Acetaminophen < 5.0 L Ur Barbiturates Screen NEGATIVE Ur Phencyclidine Scrn NEGATIVE Ur Amphetamines Screen NEGATIVE U Benzodiazepines Scrn NEGATIVE Urine Cocaine Screen NEGATIVE U Cannabinoids Screen PRESUMPTIVE POSITIVE Ethyl Alcohol < 10.1 Critical Care Time Critical Care Time: Yes Critical care time (excluding procedures): 30-74 minutes, Discussing w/Patient &/or Family/Boilers Inspector, Discussing w/Consultants, Arranging Admission or Transfer, Performing Direct Patient Care at Bedside and - (35 minutes) Discharge Plan Triage Chief Complaint: Overdose ED Provider: Ezequiel Feliciano Dx/Rx/DC Orders Primary Care Provider: Care Physician,No Primary What to do if you have Problems For any increased pain, shortness of breath, bleeding, nausea or vomiting, chestpain, or any unexpected problems, contact your Primary Care Provider. Call Doctors Registry ([phone]) or report to the closest Emergency Room. Call 911 if necessary. 10/31/24 1741 <Electronically signed by Ezequiel Brandt> Cosigner Signature (if applicable): CC: No Primary Care Physician ~ Signed [facility] Work Phone: 1(346) 284-930301-20-2023 NoteHNO ID: [id number] Author: Jose Carlos Davis MD Service: ? [...] fever, or vision change. Jose Carlos Davis [facility]01-20-2023 History of Present illness Narrative* Jose Carlos Davis MD - 06/12/2022 8:48 AM EST Patient presents with: Eye Problem: Pt reported recent ATB, eye inf, tooth infection, denied current pain, reported current (RT) eye swelling, blurred vision, visual screen 20/25. HPI: Treated here 05/27/22 with augmentin and ophthalmic cipro for dental infection and left eye conjunctivitis. He had a red spot on the right upper lid margin yesterday. Today the lid has swollen to twicethe size as yesterday. Positive symptoms: right upper [...] Jose Carlos Davis MD documented in this [facility]23 NoteHNO ID: [id number] Author: Ramiro Williamson APRN.[facility] Service: ? Author Type: Nurse Practitioner Type: Progress Notes Filed: 05/27/2022 12:09 PM Note Text: This note was created using F[employer] Dier[employer]. Subjective Torrey Craig is a 37 year old male. 37 [...] history is provided by the patient. No american sign language interpreter was used. Dental Problem This is a [...] is no mass. Tendernes (more content not included)...[facility]01-04-2023 Instructions* Patient Instructions* Ramiro Williamson APRN.[facility] - 05/27/2022 11:04 AM EST OTITIS MEDIA [...] even if the symptoms go away. 2. [id number] pain medication may be taken or other [...] holding him or her). documented in this encounterFostoria City Hospital01-04-2023 History of Present illness Narrative* Ramiro Williamson APRN.CNP - 05/27/2022 10:58 AM EST Images from the original note were not included. This note was created using [employer]. Subjective Torrey Craig is a 37 year old male. 37 [...] history is provided by the patient. No american sign language interpreter was used. Dental Problem This is a [...] with dentist. No trismus No red flags Ramiro Williamson APRN.CNP [facility]* Diagnosis Conjunctivitis of left eye, unspecified conjunctivitis type- Primary Pain, dental Unspecified disorder of the teeth and supporting structures [facility]* Diagnosis Hordeolum internum right upper eyelid- Primary [facility] noteNo assessment information availableWCleveland Clinic Mentor [facility] Work Phone: Reason for referral (narrative)No reason for referral information availableWCleveland Clinic Mentor Hospital Work Phone: Summary Purpose Family History No Family History Records FoundNo Family History Records Found Advance Directives Advance Directive Response Recorded Date/ Time Living Will No May 29 4 5:33am Power of Mechanical Tech No May 29 024 5:33am Advance Directive Response Recorded Date/ Time Do you have a Healthcare Power of Mechanical Tech? No October 31, 2024 12:30pm Chief Complaint and Reason for Visit Chief Complaint overdose Chief Complaint Admit Date Overdose October 31, 2024 2:33 pm INTENTIONAL CLONIDINE OVERDOSE October 2:37pm Reason for Visit Admit Date Intentional overdose of clonidine October 222024 2:37pm Additional Source Comments Source Comments (unrecognize d section and content) In the event this informatio n is protected by the Federal Confidentiality of Alcohol and Drug Abuse Patient Records regulations: The Federal rules restrict any use of the information to criminally investigate or prosecute any alcohol or drug abuse patient.[facility] HospitalIn the event this information is protected by the Federal Confidentiality of Alcohol and Drug Abuse Patient Records regulations: The Federal rules restrict any use of the information to criminally investigate or prosecute any alcohol or drug abuse patient.[facility] Reason for Visit (unrecogniz ed section and content) Reason Comments Dental Problem left and right sided lower tooth pain x 3 weeks, redness and crusty left eye x this am Reason Comments Eye Problem Pt reported recent A TB, eye inf, tooth infection, denied current pain, reported current (RT) eye swelling, blurred vision, visual screen 20/25. (unrecognized sect ion and content) No Status Records FoundNo Status Records Found INFORMATION SOURCE (unrecogn ized section and content) DATE CREATED AUTHOR 03/27/2023 [facility] DATE CREATED AUTHOR AUTHOR'S ORGANIZ ATION 07/14/[address] [facility] Care Teams (unrecognized sec tion and content) Team Status: Active Member Role Status Dates No Primary Care Physician Family Provider Active Dr. Chika Kenney MD Primary Care Provider Active Team Status: Inactive Member Role Status Dates Dr. Chika Kenney MD Primary Care Provider Active Dr. Luis E Sharma DO Emergency Provider Active Team Status: Active Member Role Status Dates No Primary Care Physician Primary Care Provider Active Team Status: Active Member Role Status Dates Dr. Ezequiel Feliciano DO Emergency Provider Active Start : October 31, 2024 No Primary Care Physician Primary Care Provider Active Start: October 31, 20[address]. [address] Calderon DO Attending Provider Active Start: October 31, 2024 Team Status: Active Member Role Status Dates Dr. Ezequiel Feliciano DO Emergency Provider Active Start : October 31, 2024 No Primary Care Physician Primary Care Provider Active Start: October 31, 20[address] Calderon DO Admit Provider Active Start: October 31, 20[address]. [address] Calderon DO Attending Provider Active Start: October 31, 2024 Goals (unrecognized section and content) Goals may be documented in a n alternate sectionGoals may be documented in an alternate section FOR RECORDS PERTAINING TO PATIENTS WHO ARE [...] BE BASED ON THE PRIMARY CLINICAL RECORDS. [facility] [employer] [facility]. provides no warranty or guarantee of the accuracy or completeness of information in this document.
[2024-11-01] VITALS (17 sets, daily range): BP systolic 105–154; BP diastolic 51–96; PULSE 43–68; RESP 13–18; TEMP 36.4–36.8; O2SAT 97–99; BMI 35.6
[2024-11-01] MEDS: Enoxaparin 40 MG/0.4 ML Syringe SC (08:25)
[2024-11-01] MEDS: FLUoxetine 20 MG Capsule PO (08:25)
--- NOTE | 2024-11-01 10:50 | CASEMGMT ---
Social Work Per nursing, pt has been cleared for assessment by crisis. Referral faxed to crisis and phone call made requesting assessment. Crisis to send someone over to see pt shortly. MILLI Ortega
--- NOTE | 2024-11-01 15:39 | PN_ITS ---
Subjective Subjective Patient seen and examined. He was lying comfortably in bed and had no complaints. He was admitted on account of clonidine overdose. He denies suicidal ideation and says he took the pills just because he was trying to sleep. However he took about 60 pills. Review of systems otherwise negative. His bradycardia had improved at time of review. Objective Data Objective Data Vital Signs: Vital Signs Temp Pulse Resp BP Pulse Ox O2 Del Method 97.8 F 50 L 14 114/94 H 98 Room Air 11/01/24 14:48 11/01/24 14:48 11/01/24 14:48 11/01/24 14:48 11/01/24 14:48 11/01/24 14:48 Oxygen Delivery Method Room Air Weight: 240 lb 15.444 oz Body Mass Index (BMI) 35.6 Intake & Output: Intake and Output for Last 24 Hours 10/30/24 10/31/24 11/01/24 23:59 23:59 23:59 Intake Total 200 / 200 Output Total 400 / 400 Balance 200 / 200 -400 / -400 Lab / Micro Data 10/31/24 12:50 10/31/24 12:50 Physical Exam Const alert, oriented x3 and no apparent distress General Appearance: cooperative and well developed HEENT normocephalic, head/scalp atraumatic, moist oral mucous membranes, oropharynx normal and gingiva normal Eyes PERRL and EOMs intact bilaterally Neck supple Lymph Lymphatic: no lymphedema noted Resp normal respiratory effort, normal air movement and clear to auscultation bilaterally Cardio regular rate, regular rhythm, S1 normal heart sound, S2 normal heart sound and no murmurs GI normal to inspection, nondistended, normoactive bowel sounds, soft to palpation, non-tender and non-distended Extremity normal capillary refill, no clubbing, cyanosis or edema and no calf tenderness General Extremity: no tenderness to palpation of joints or extremities Skin General Skin Exam: no breakdown Neuro CN's II-XII intact bilaterally, no focal motor deficits and no sensory deficits noted Motor Exam: general weakness Psych thought process normal, cooperative and affect normal Appearance: appropriate Assessment & Plan Assessment/Plan (1) Intentional overdose of clonidine: PLAN: Plan #Intentional overdose of clonidine * patient has no complaints this morning. He took the clonidine because he wanted to go and sleep, and denies any suicidal or homicidal ideation. * He took about 60 tablets of the clonidine. He had bradycardia but that is now improving. At time of review this morning his heart rate was in the 60s but subsequently came down to the 50s. * He is asymptomatic. * Patient medically cleared for psych crisis evaluation. The crisis team reviewed him and said he is out of psych states for his insurance and so they will place he can be referred to his [facility]. * His urine tox was positive for cannabinoids and opiates though he denies using these. His serum alcohol level was less than 10.1. * Crisis team is going to try to place the patient. They had asked if I would agree to a safety plan for patient to go home with his monitoring his medications as he had a follow-up with the mental health team tomorrow 11/02/2024. I however do not think this is in the patient's best interest and he will be best served by being referred to psych facility for inpatient treatment. * #Bradycardia: Likely due to clonidine overdose. Management as above. #Elevated BP: * Patient not a known hypertensive. * Blood pressure down in the 114 systolic. IV hydralazine as needed. * Will monitor closely. #Anxiety and depression: On fluoxetine #Class II obesity: BMI is 35.6. Complicates acute care, expected recovery and prognosis. DVT prophylaxis: lovenox Charges/Coding Visit Charges Inpatient E&M: 65356 Subs Hosp L2
--- NOTE | 2024-11-01 18:15 | PN_ITS ---
Progress Note 6:22pm I was informed by patient's nurse that he wanted to see me. I came up to see the patient at ~ 6pm. Patient said he wanted to go home because he was going to lose his job, and his child support would fall behind, and he would get deeper into depression. He stated that he had not tried to commit suicide, and only took the meds because they were for anxiety and he felt they would make him sleep better. I explained to patient that I did not think he was medically safe to be discharged until he was cleared by psychiatry. Since we did not have a psychiatrist inhouse, he would have to be transferred to a [facility] facility. Patient said he was told by mental health crises team that he could go home, and I was making him stay. I explained that mental health crises had proposed a safety plan where patient's would be responsible for hium at home and secure his meds because they were now working on getting him in to [facility]. I informed patient that this plan was not a suitable one in my medical opinion because it would be entrusting his care to his who was not a psychiatrist, and the hospital would still be liable for his care if anything untoward happened at home. Patient then told me that I was making his life worse, I would be responsible for whatever happened to him, that he was going to write me a letter telling me how I had made everything go bad in his life. I explained to patient that we could have mental health crises team evaluate him again tomorrow and see if they felt they could clear him for discharge. Patient said he felt he did not have a choice in the situation,a nd said he felt my medical judgment was poor because I was telling him I was not going to let him go home. I saw patient in the presence of his nurse James. Nurse asked to inform patient advocate to come see the patient also. TIme spent: 22 mins Visit Charges Inpatient E&M: 98892 PROLNG IP/OBS E/M EA 15 MIN
[2024-11-02 04:00] VITALS: BP 110/51; PULSE 48; RESP 13; TEMP 36.6; O2SAT 97
[2024-11-02 04:48] LABS: Absolute Neutrophil Count 5.9 X10^3/uL (2.0-7.7); Basophil# 0.08 X10^3/uL; Basophil% 0.8 % (0-1); Eosinophil# 0.21 X10^3/uL; Eosinophils% 2.2 % (0-5); Hemoglobin 14.2 g/dL (13.0-16.5); Mean Corp Hgb Conc 34.6 g/dL (32-36); Mean Corpuscular Hgb 31.3 pg (27.0-32.0); Mean Corpuscular Volume 90.3 fL (80-94); Mean Platelet Vol. 12.8 fl (6.2-12.0); Monocyte# 0.74 X10^3/uL; Monocyte% 7.7 % (0-10); NRBC Flagged by Analyzer 0 % (0-5); Neutrophil # 5.94 X10^3/uL (2.7-7.7); Neutrophil % 61.9 % (47-70); Platelet Count 200 K/mm3 (150-450); RBC Distribution Width CV 12.9 % (11.6-14.6); RBC Distribution Width SD 42.5 fl (35.1-43.9); Red Blood Count 4.54 M/mm3 (4.6-6.2); White Blood Count 9.6 K/mm3 (4.4-11.0)
[2024-11-02 04:49] VITALS: BMI 35.4
[2024-11-02 05:06] LABS: Anion Gap 12 (5-15); BUN 12 mg/dL (4-19); BUN/Creat Ratio 14.5 RATIO (10-20); Carbon Dioxide 24.6 mmol/L (21.0-32.0); Chloride 103 mmol/L (98-108); Creatinine, Serum 0.82 mg/dL (0.70-1.20); EST Glomerular Filtration Rate 116 (>60); Estimated Creatinine Clearance 149.69 ml/min (50-250); Glucose 84 mg/dL (70-99); Potassium 3.9 mmol/L (3.3-5.1); Sodium Level 139 mmol/L (133-145)
[2024-11-02 08:21] VITALS: BP 111/75; PULSE 70; RESP 15; TEMP 36.6; O2SAT 97
[2024-11-02] MEDS: FLUoxetine 20 MG Capsule PO (08:25)
--- NOTE | 2024-11-02 12:15 | NURSING ---
Called report to BRIDGETTE Rosenberg on [facility]. States room is not ready but she will let us know when it is.
[2024-11-02 13:36] VITALS: BP 115/64; PULSE 62; RESP 18; TEMP 36.8; O2SAT 97
--- NOTE | 2024-11-02 13:36 | NURSING ---
pt arrived to unit. suicide precautions maintained- items removed from room per policy. kishan dunbar bedside.
--- NOTE | 2024-11-02 13:46 | PN_ITS ---
Subjective Subjective Patient is seen and examined this morning with his nurse by his bedside. He had no active complaints. Patient was apologetic about his behavior yesterday. He has no complaints and review of systems otherwise negative. He has remained hemodynamically stable. Objective Data Objective Data Vital Signs: Vital Signs Temp Pulse Resp BP Pulse Ox O2 Del Method 98.3 F 62 18 115/64 97 Room Air 11/02/24 13:36 11/02/24 13:36 11/02/24 13:36 11/02/24 13:36 11/02/24 13:36 11/02/24 13:38 Oxygen Delivery Method Room Air Weight: 239 lb 1.6 oz Body Mass Index (BMI) 35.4 Intake & Output: Intake and Output for Last 24 Hours 10/31/24 11/01/24 11/02/24 23:59 23:59 23:59 Intake Total 200 / 200 980 / 980 Output Total 400 / 400 Balance 200 / 200 -400 / -400 980 / 980 Lab / Micro Data 11/02/24 03:40 11/02/24 03:40 Labs: Laboratory Results - last 24 hr 11/02/24 03:40: WBC 9.6, RBC 4.54 L, Hgb 14.2, Hct 41.0, MCV 90.3, MCH 31.3, MCHC 34.6, RDW Std Deviation 42.5, RDW Coeff of Mio 12.9, Plt Count 200, MPV 12.8 H, Immature Gran % (Auto) 1.400 H, Neut % (Auto) 61.9, Lymph % (Auto) 26.0, [place] % (Auto) 7.7, Eos % (Auto) 2.2, Baso % (Auto) 0.8, Absolute Neuts (auto) 5.9, Absolute Lymphs (auto) 2.50, Nucleated RBC % 0, Sodium 139, Potassium 3.9, Chloride 103, Carbon Dioxide 24.6, Anion Gap 12, BUN 12, Creatinine 0.82, Estim Creat Clear Calc 149.69, Est GFR (MDRD) Non-Af 116, BUN/Creatinine Ratio 14.5, Glucose 84, Calcium 9.0 Physical Exam Const alert, oriented x3 and no apparent distress General Appearance: cooperative, comfortable and well developed HEENT normocephalic, head/scalp atraumatic, hearing grossly normal bilaterally and moist oral mucous membranes Eyes EOMs intact bilaterally and conjunctivae normal Neck full ROM Lymph Lymphatic: no lymphedema noted Chest inspection of chest normal Resp normal respiratory effort, normal air movement, no use of accessory muscles and clear to auscultation bilaterally Cardio regular rate, regular rhythm, S1 normal heart sound, S2 normal heart sound, no murmurs and peripheral pulses 2+ throughout GI normal to inspection, nondistended, normoactive bowel sounds, soft to palpation, non-tender and non-distended Back/Spine normal ROM Extremity normal to inspection, full ROM, normal capillary refill and no clubbing, cyanosis or edema General Extremity: no tenderness to palpation of joints or extremities Skin no rashes or lesions noted General Skin Exam: no breakdown Neuro no focal motor deficits and no sensory deficits noted Motor Exam: general weakness Psych thought process normal, cooperative and affect normal Appearance: appropriate Mood & Affect: depressed Assessment & Plan Assessment/Plan (1) Intentional overdose of clonidine: PLAN: Plan #Intentional overdose of clonidine * .He took the clonidine because he wanted to go and sleep, and denies any suicidal or homicidal ideation. * He took about 60 tablets of the clonidine. He had bradycardia but that is now improving. At time of review this morning his heart rate was in the 60s but subsequently came down to the 50s. * He is asymptomatic. * Patient medically cleared for psych crisis evaluation. The crisis team reviewed him and said he is out of psych states for his insurance and so they will place he can be referred to his [facility]. * His urine tox was positive for cannabinoids and opiates though he denies using these. His serum alcohol level was less than 0.1. * Crisis team is going to try to place the patient. They had asked if I would agree to a safety plan for patient to go home with his monitoring his medications as he had a follow-up with the mental health team tomorrow 11/02/2024. I however do not think this is in the patient's best interest and he will be best served by being referred to psych facility for inpatient treatment. * Patient currently awaiting placement. I was informed today that the mental health board today approved funding for private [facility] so now there are more options for placement. Mental health crisis aware. * #Bradycardia: Likely due to clonidine overdose. Management as above. #Elevated BP: * Patient not a known hypertensive. Resolved. * Blood pressure down in the 114 systolic. IV hydralazine as needed. * Will monitor closely. #Anxiety and depression: On fluoxetine #Class II obesity: BMI is 35.6. Complicates acute care, expected recovery and prognosis. DVT prophylaxis: lovenox Charges/Coding Visit Charges Inpatient E&M: 83265 Subs Hosp L2
--- NOTE | 2024-11-02 14:37 | CHAPLAIN ---
Type of Pastoral Visit _x__ Initial Visit ___ Follow-up Visit ___ On-call Visit ___ General Patient Visit ___ Spiritual Assessment ___ Family Conference ___ Bereavement ___ Rapid Response ___ Code Blue ___ Other (describe below) Pastoral Care Referral From ___ Patient ___ Family ___ Nurse ___ Physician _x__ Slot Operations Manager ___ Cashier Credit _x__ Other (describe below) Sacrament/Intervention ___ Active listening ___ Anointing ___ Pentecostal ___ Bereavement ___ Communion ___ Diane exploration ___ ___ Life review ___ Prayer ___ Reconciliation ___ Sacrament of Sick _x__ Supportive presence ___ Wedding ___ Other (describe below) Pastoral Comments patient is alert and able to talk; pt has a sitter and is waiting on transfer for a psych evaluation; pt denies having any needs, says that his will be coming soon, and that he is doing fine now;
[2024-11-02 19:36] VITALS: BP 124/77; PULSE 56; RESP 16; TEMP 37; O2SAT 97
[2024-11-03 01:01] VITALS: BP 138/86; PULSE 56; RESP 16; TEMP 36.5; O2SAT 98
--- NOTE | 2024-11-03 01:17 | NURSING ---
[facility] called. They found placement for him using funds from the [employer]. He will be going to [facility] for Psychiatry in [place]. He will be going to the dual diagnosis unit. He will be seeing Nurse Practitioner Sarah. Nurse to nurse phone number is [phone] option 1. The [facility] will work on getting transportation. This RN gave them the phone number for [facility]. The [facility] wants the transportation bill to go to them.
[2024-11-03] MEDS: 0.9% Saline Lock 10 ML Syringe IV (02:51)
--- NOTE | 2024-11-03 10:46 | DS.PCM_ITS ---
Providers Date of Admission: 10/31/24 Date of Discharge: 11/03/24 Primary Care Physician: No Primary Care Phys Reason For Visit: INTENTIONAL CLONIDINE OVERDOSE Diagnosis Discharge Diagnosis (1) Intentional overdose of clonidine: Status: Acute Code(s): T46.5X2A - Poisoning by other antihypertensive drugs, intentional self-harm, initial encounter Plan #Intentional overdose of clonidine * .He took the clonidine because he wanted to go and sleep, and denies any suicidal or homicidal ideation. * He took about 60 tablets of the clonidine. He had bradycardia but that is now improving. At time of review this morning his heart rate was in the 60s but subsequently came down to the 50s. * He is asymptomatic. * Patient medically cleared for psych crisis evaluation. The crisis team reviewed him and said he is out of psych states for his insurance and so they will place he can be referred to his [facility]. * His urine tox was positive for cannabinoids and opiates though he denies using these. His serum alcohol level was less than 0.1. * Crisis team is going to try to place the patient. They had asked if I would agree to a safety plan for patient to go home with his monitoring his medications as he had a follow-up with the mental health team tomorrow 11/02/2024. I however do not think this is in the patient's best interest and he will be best served by being referred to psych facility for inpatient treatment. * Patient currently awaiting placement. I was informed today that the mental health board today approved funding for private [facility] so now there are more options for placement. Mental health crisis aware. * #Bradycardia: Likely due to clonidine overdose. Management as above. #Elevated BP: * Patient not a known hypertensive. Resolved. * Blood pressure down in the 114 systolic. IV hydralazine as needed. * Will monitor closely. #Anxiety and depression: On fluoxetine #Class II obesity: BMI is 35.6. Complicates acute care, expected recovery and prognosis. DVT prophylaxis: lovenox Medications at Discharge Home Medications clonidine HCl 0.1 mg tablet 0.05 - 0.1 mg PO BID PRN PRN anxiety 10/31/24 fluoxetine 20 mg capsule 20 mg PO DAILY 10/31/24 Hospital Course Operations None Procedures None Summary of Care Provided Minutes Spent on Discharge: 37 Hospital Course: Patient is a 39-year-old male with a past medical history of depression was admitted through the ED on 10/31/2024 after an intentional clonidine overdose. He was on clonidine for anxiety and depression and said he had been under significant stress so he took at least 60 tablets of his clonidine 0.1 mg pills because he wanted to sleep. He did not have any other ingestions. On admission he was found to be somnolent and EKG showed sinus bradycardia with first-degree AV block. He was hypertensive with systolic in the 150s and 160s. ED doctor discussed with poison control who recommended only monitoring at this point. Patient was pink slipped for a psych hold. He was admitted to be managed for intentional clonidine overdose. His bradycardia eventually resolved and he was cleared for evaluation by mental health crisis team. Mental health crisis team reviewed him and the decision was for patient to be placed in a psych facility. They had proposed a safety plan for him to be discharged home where his medications will be under the care of his . However this hospitalist was not comfortable with this idea and felt he needed expert psychiatric evaluation before he could be discharged home. Patient was therefore eventually discharged to psych medical facility in the early hours of 11/03/2024. He was discharged to [facility] for psychiatry in [place]. Patient could not be seen and examined prior to discharge as he was discharged in the early hours of 11/03/2024, at [facility]. He was however seen and examined on 11/02/2024. Physical Exam Narrative not examined as he left in the early hours of 11/03/2024 before this hospitalist having started her shift. Weight / BMI Weight Weight: 239 lb 1.6 oz Body Mass Index (BMI) 35.4 ABG / Lab / Microbiology Data 11/02/24 03:40 11/02/24 03:40 D/C Instructions Discharge Diet: No restrictions Discharge Activity: Return to Normal Activity DC O2, CPAP, BIPAP Needs Home O2 Discharge instructions: No Meaningful Use Info Meaningful Use Meaningful Use Diagnoses (Choose all that apply): None applicable Ischemic Stroke Statin Dosing Therapy Reference: STATIN DOSE THERAPY REFERENCE: * Patients > 75 years receive moderate or high dose statin therapy. * Patients 75 years or YOUNGER should receive HIGH intensity statin dose unless contraindicated. You will be required to document reason for non-treatment if statin daily dose does not meet guidelines. HIGH DOSE STATIN THERAPY DAILY Atorvastatin > than or = to 40 mg Rosuvastatin > than or = to 20 mg Amlodipine + Atorvastatin > than or = to 2.5/40 mg Ezetimibe + Simvastatin 10/80 mg Simvastatin 80mg Discharge Plan Admission Admit Date/Time: 10/31/24 14:37 Primary Reason for Your Visit: intentional overdose of clonidine Attending Provider: Melisa Reese Primary Care Provider: Care Physician,No Primary Consulting Providers: Lane Calderon Discharge Orders/Prescriptions Prescriptions: No Action clonidine HCl 0.1 mg tablet 0.05 - 0.1 mg PO BID PRN PRN (Reason: anxiety) fluoxetine 20 mg capsule 20 mg PO DAILY Referrals / Follow Up: Chika Kenney MD [Med Staff - Licensed Insurance Agent] - Care Physician,No Primary [Primary Care Provider] - Disposition Disposition (needs filled in before D/C Order can be placed): Psychiatric Hospital or Unit Charges/Coding Visit Charges Inpatient E&M: 44006 Disch Hosp >30min
== END 2024-11-03 03:30 | DRG 918 ==
LOC: ED 16:29 → ICU 16:31 → MS3 11-02 13:32
PROVIDERS: Admitting Provider Hospitalist; Emergency Provider Emergency Medicine; Visit Provider Student in an Organized Health Care Education/Training Program
DX: T46.5X2A Poisoning by other antihypertensive drugs, intentional self-harm, initial encounter (principal); E66.812 Obesity, class 2; F32.A Depression, unspecified; F41.9 Anxiety disorder, unspecified; R00.1 Bradycardia, unspecified; F17.210 Nicotine dependence, cigarettes, uncomplicated; R03.0 Elevated blood-pressure reading, without diagnosis of hypertension; R40.0 Somnolence; Z68.36 Body mass index [BMI] 36.0-36.9, adult; Z79.899 Other long term (current) drug therapy
CPT/HCPCS: 36415; 80048; 80053; 80143; 80179; 80307; 82077; 85025; 93005; 94762; 99285; 99406; A4216